=== PATIENT | male | born 1950 ===

== ENCOUNTER 2022-10-16 17:23 | Inpatient (IN) | payer MEDICARE, BC, SELFPAY ==
[2022-10-16] VITALS (40 sets, daily range): BP systolic 96–118; BP diastolic 64–91; PULSE 65–90; RESP 2–40; TEMP 31–36.6; O2SAT 90–99
--- NOTE | 2022-10-16 19:40 | RESPIRATORY ---
Pt states that he recently obtained home O2 in the last week through [employer]. He uses 2L O2 during the day, and a CPAP with no O2 bleed in at night - pt is unsure of home pressure settings. Pt placed on hospital CPAP unit at night with constant pressure 7 cmH2O, and FiO2 45%.
--- NOTE | 2022-10-16 20:44 | W.PM.HP.N ---
Date of service: 10/16/22 Time of Service: 20:44 Assessment and Plan Assessment and plan (1) Interstitial lung disease: Status: Acute Assessment and plan: He was admitted to the ICU where he has stabilized on high-flow NC He received IV steroids, ceftriaxone, azithromycin and vancomycin [facility]. Cont methylprednisonone 40mg IV BID Continue ceftiraxone and azithromycin. Lab for legionella and strep pneumoniae urine antigens, blastomyces Ag, Histo Ag, Mycoplasma pneumoniae PCR and Fungitell. Planned bronchoscopy on Tuesday. (2) Acute and chronic respiratory failure: Status: Acute Assessment and plan: He was placed on 2L supplemental O2 recently at a clinic visit. He recently increased it to 2.5. Now feeling better on high-flow NC Questionable pneumonia in background of ILD. (3) Acute congestive heart failure: Status: Acute Assessment and plan: No previous known h/o of CHF NTproBNP elevated now at 8572. Lasix 40mg IV given. Re-evaluate in AM for any further diuresis. Echocardiogram ordered. (4) Chronic kidney disease (CKD): Status: Chronic Assessment and plan: Creatinine at [facility] of 1.39; baseline not currently known. Monitor. (5) Atrial fibrillation: Assessment and plan: Apixiban on hold for bronchoscopy. Cont metoprolol. Ventricular rate control. Telemetry (6) Sleep apnea, obstructive: Status: Chronic Assessment and plan: CPAP (7) Hypertensive disorder: Status: Chronic Assessment and plan: His losartan and lasix were recently held d/t low BP; metoprolol was continued. Will give IV lasix 40mg now d/t elevated NTproBNP. (8) Hyperlipidemia: Status: Acute Assessment and plan: Cont atorvastatin. (9) Discharge planning issues: Status: Acute Assessment and plan: Pt is a full code. Disposition likely home at time of d/c. History of Present Illness History of Present Illness Chief Complaint: Cough and shortness of breath Narrative: This is a 72 yo male transferred from [facility]. He has a h/o Interstitial lung disease, afib, prostate CA, depression, HLD, HTN, PLMD, MAR, syringomyelia. He has been experiencing cough, chest congestion and shortness of breath for 1 month; s/p 2 courses of levofloxacin w/o improvement in his symptoms however his sputum has gone from thick yellow to thick clear. No gross hemoptysis; small smear of blood occassionally. He was initiated on 2L supplemental O2 at [facility] recently and at that time his lasix and losartan were held d/t low BP; metoprolol continued. CT chest recently showed worsening ILD with appearance of ground glass in areas. He was seen in the Pulmonary clinic on 10/15/[address] Tavares and a bronchoscopy was scheduled as an outpt for this coming Tuesday. He endorsed a recent syncopal episode that resulted in a sprained ankle; no head injury. At [facility] his WBC count was 10.5. Hgb 14.9. Na 134. K 4.6. Creainine 1.39. total bili 1.6. AST and ALT normal. NTproBNP elevated at 8572 Procalcitonine normal. At presentation to [facility] on his home 2.5L his O2 saturation was 73%. He was titrated up to 10L supplemental O2 and then changed to high-flow NC in the ICU where he stated he was feeling much better. This episode of illnes appeared to start as a URI at the time his tested positive for COVID. He was negative for COVID on day of this admission [facility]. At [facility] he was given IV solu-medrol, ceftriaxone, azithromycin and vancomycin. Review of Systems Constitutional Constitutional: Reports difficulty sleeping, Reports headache(s) and Reports lethargy Eyes Eyes: Reports itchy eyes ENT Ears, Nose, Mouth, and Throat: Reports headache(s) Cardiovascular Cardiovascular: Denies chest pain and Reports dyspnea on exertion Respiratory Respiratory: Reports as per HPI, Reports dyspnea on exertion and Reports other (orthopnea) Gastrointestinal Gastrointestinal: Denies abdominal pain, Denies change in stool character, Denies nausea and Denies vomiting Musculoskeletal Musculoskeletal: Reports other (R ankle discomfort and swelling;improving) Neurologic Neurologic: Reports headache(s) Allergic/Immunologic Allergic/Immunologic: Reports itchy eyes [facility] All Active Problems (Updated 10/16/22 @ 21:19 by Guy Spears MD) Acute congestive heart failure (Acute) Discharge planning issues (Acute) Acute and chronic respiratory failure (Acute) Backache (Acute) Carpal tunnel syndrome of right wrist (Acute) Cervical radiculopathy (Acute) Chronic kidney disease (CKD) (Chronic) Depressive disorder (Chronic) Eustachian tube disorder (Acute) Fibrosis, lung (Acute) Hyperlipidemia (Acute) Hypertensive disorder (Chronic) Interstitial lung disease (Acute) Sleep apnea, obstructive (Chronic) Periodic limb movement disorder (Acute) Right sided sciatica (Acute) Syringomyelia (Acute) Personal history of nicotine dependence (Acute) Medical History (Updated 10/16/22 @ 21:19 by Gyu Spears MD) Atrial fibrillation F/U with cards last appt 10/01/22. Scheduled for stress test and ECHO in 11/02/2022 Malignant neoplasm of prostate Surgical History (Updated 01/13/22 @ 14:04 by Suze Guerrero) H/O hemorrhoidectomy H/O hernia repair History of carpal tunnel surgery History of colonoscopy History of lung biopsy History of radical prostatectomy Hx of tonsillectomy Family History (Updated 01/13/22 @ 14:06 by Suze Guerrero) Brother Heart disease Father Heart disease Mother Pancreatic cancer Social History Smoking/Tobacco Use Status: Former Tobacco Use Quit Date: 03/21/12 Smoking risk assessment performed?: Yes Alcohol Intake: current Alcohol Intake frequency: holidays/special occasions only Drug use: Never Substance use type: does not use Housing: house Additional Social history: unable to assess [employer] Allergies and Home Medications Allergies Allergy/AdvReac Type Severity Reaction Status Date / Time No Known Allergies Allergy Verified 10/15/22 11:30 Home Medications Medication Instructions Recorded Confirmed Type apixaban 5 mg tablet (Eliquis) 5 mg PO BID 01/13/22 10/15/22 History atorvastatin 40 mg tablet 40 mg PO DAILY 01/13/22 10/15/22 History bioflavonoids 200 mg capsule See Rx Instructions PO DIRECTED 01/13/22 10/15/22 History gabapentin 100 mg capsule 100 mg PO TID 01/13/22 10/15/22 History metoprolol succinate 100 mg 100 mg PO DAILY 01/13/22 10/15/22 History tablet,extended release 24 hr multivitamin 1 tab PO DAILY 01/13/22 10/15/22 History pantoprazole 40 mg tablet,delayed 40 mg PO DAILY 01/13/22 10/15/22 History release sertraline 100 mg tablet 100 mg PO BID 01/13/22 10/15/22 History albuterol sulfate 90 mcg/actuation 2 puff inhalation Q6H PRN 05/04/22 10/15/22 Rx aerosol inhaler (Ventolin HFA) shortness of breath or wheezing #8.5 grams Exam Narrative Exam Narrative: Sitting up in bed. High-flow NC in place. Const General: cooperative and no acute distress Nutritional Appearance: overweight Orientation: alert and oriented x3 HENMT Head: normocephalic and atraumatic Ears: hearing grossly normal bilaterally Eyes General: appearance normal, both eyes and all related structures Sclera: sclerae normal Neck Neck: full ROM and no JVD Resp Effort & Inspection: normal respiratory effort Auscultation: rales, no rhonchi and no wheezes Cardio Rate: regular rate Rhythm: abnormal rhythm irregularly irregular Heart Sounds: S1 normal, S2 normal and no murmurs GI Inspection: normal to inspection Palpation: soft and nontender Skin General skin exam: no rashes or lesions noted Neuro General: no focal motor deficits Cranial Nerves: facial strength normal Speech: speech normal Extrem General: no pedal edema and no calf tenderness Psych Appearance: grossly normal Mental Status: mental status grossly normal Speech and Movement: speech and movement normal Mood: congruent mood Affect: normal affect Results Last Vital Signs Pulse 77 10/16/22 19:25 Resp 28 H 10/16/22 19:25 Pulse Ox 98 10/16/22 19:25 Time Spent Time spent with Patient: 40-54 minutes Time was spent: preparing to see the patient(eg.review tests), obtaining and/or reviewing separately otained hiistory, ordering medications,tests, procedures, referring, communicating with other health care management associate, indepentently interpreting results, counseling the patient and care coordination
[2022-10-16] MEDS: Albuterol/Ipratropium 3 ML UPD VIAL UPD ×2 (21:08→23:54)
[2022-10-16] MEDS: Furosemide 40 MG/4 ML VIAL IVP (21:09)
[2022-10-16] MEDS: methylPREDNISolone SUCC 40 MG VIAL IVP (21:09)
[2022-10-16] MEDS: Normal Saline Flush 10 ML SYR IVP ×2 (21:16→23:55)
[2022-10-16 22:00] LABS: Source Nasal/Nares
[2022-10-16 22:34] LABS: COVID-19 PCR Negative (Negative)
[2022-10-16] MEDS: Sertraline 50 MG TAB 100 MG PO (22:42)
[2022-10-17] VITALS (83 sets, daily range): BP systolic 79–119; BP diastolic 55–83; PULSE 64–116; RESP 1–45; TEMP 31–36.6; O2SAT 89–100
[2022-10-17] MEDS: Zolpidem 5 MG TAB PO ×2 (01:43→20:54)
[2022-10-17] MEDS: Albuterol/Ipratropium 3 ML UPD VIAL UPD ×3 (06:21→18:01)
[2022-10-17 06:35] LABS: Abs Immature Grans 0.06 10^3/uL (0.0-0.06); Absolute Lymphocyte Count 0.45 10^3/uL (1.2-3.4); Basophils % 0.2; HCT 40.4 % (40.0-50.0); HGB 13.5 g/dL (13.5-17.5); Immature Grans % 0.5; Lymphocytes % 3.4; MCH 31.5 pg (27.0-33.0); MCHC 33.4 % (32.0-36.0); MCV 94 fL (80-95); MPV 10.3 fL (8.0-11.0); Monocytes % 7.6; Neutrophils % 88.3; Platelet Count 146 10^3/uL (130-400); RBC 4.28 10^6/uL (4.36-5.78); RDW 12.9 % (11.8-14.1); RDW-SD 44.3 fL; WBC 13.17 10^3/uL (4.4-10.8)
[2022-10-17 06:39] LABS: Absolute Basophil Count 0.03 10^3/uL (0.0-0.2); Absolute Neutrophil Count 11.63 10^3/uL (1.2-6.7)
[2022-10-17 06:56] LABS: INR 1.1 (0.9-1.1); Prothrombin Time 10.9 sec (9.3-11.0)
[2022-10-17 07:06] LABS: ALT 21 U/L (16-63); AST 29 U/L (15-37); Albumin 3.1 g/dL (3.4-5.0); Alkaline Phosphatase 72 U/L (46-116); Anion Gap 9.2 mmol/L (3-11); BUN 25 mg/dL (7-18); Bilirubin, Total 1.1 mg/dL (0.2-1.0); CO2 24.8 mmol/L (21.0-32.0); CREATININE 1.3 mg/dL (0.70-1.30); Calcium 8.6 mg/dL (8.5-10.1); Chloride 102 mmol/L (98-107); Ferritin 275 ng/mL (26-388); Glucose 153 mg/dL (74-106); Magnesium 1.9 mg/dL (1.8-2.4); Potassium 3.6 mmol/L (3.5-5.1); Sodium 136 mmol/L (136-145); TSH (W/Ref FT4) 0.53 uIU/mL (0.36-3.74); Total Protein 7.5 g/dL (6.4-8.2)
[2022-10-17 07:14] LABS: Vitamin D 25 Total 54.4 ng/mL (30-100)
[2022-10-17 07:16] LABS: Bilirubin, Direct 0.3 mg/dL (0.0-0.2); C-Reactive Protein 13.42 mg/dL (0.0-0.3)
[2022-10-17 07:17] LABS: D-Dimer 1170 ng/mlFEU (<500)
[2022-10-17 07:47] LABS: Procalcitonin < 0.1 ng/mL
[2022-10-17] MEDS: Gabapentin 100 MG CAP PO ×3 (08:53→20:54)
[2022-10-17] MEDS: Pantoprazole 40 MG TABCR PO (08:53)
[2022-10-17] MEDS: Metoprolol CR 100 MG TABCR PO (08:53)
[2022-10-17] MEDS: AZITHROMYCIN 500 MG in Normal Saline 250 ML 250 MG IVPB (08:53)
[2022-10-17] MEDS: Sertraline 50 MG TAB 100 MG PO ×2 (08:53→20:55)
--- NOTE | 2022-10-17 09:06 | PDOC.CMIN ---
Date of service: 10/17/22 Time of Service: 09:07 Care Management Initial Assmt Initial Assessment REASON FOR HOSPITALIZATION:: interstitial lung disease PREVIOUS FUNCTIONAL STATUS/SOCIAL/FAMILY SUPPORTS:: Prasad lives in a single family home in [place], [place] with his Darlene. They have a son who lives in [place], [place] with his family and a daughter in [place]. They are a close family and the children come to visit often. Prasad is no longer working. 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 Until the last few weeks, he was very active and independent. CURRENT FUNCTIONAL STATUS:: Prasad was sitting up in bed visiting with his when CM met with him. He was pleasant and cooperative and engaged easily in conversation. Prasad stated that until a few weeks ago, he was very active and able to mow the lawn, work and do normal activities. He developed some sort of a respiratory infection (negative for Covid X3) and since then has experienced a steady decline. He was scheduled to have an outpatient bronchoscopy with Dr. Tavares tomorrow, but ended up in the ED at [facility] who transferred him to [facility]. His WBC and CRP are elevated and he remains tachypneic with respiratory rates in the 30s at times. Prasad is on high-flow nasal oxygen with oxygen saturation levels in the high 90s. He will be seen by Dr. Tavares in consultation tomorrow. ADVANCE DIRECTIVES:: None on file at [facility], however states he has advanced directives and Surekha is the healthcare agent. Has patient been provided with info about the portal/API?: No Did the patient sign up for the portal?: No CODE STATUS:: Full Code INSURANCE COVERAGE / FINANCIAL ISSUES:: Medicare Blue Cross/Blue [employer] CURRENT HOME/COMMUNITY SERVICES/EQUIPMENT:: none PRIMARY CARE PHYSICIAN:: Francisco Javier Morris POTENTIAL DISCHARGE NEEDS:: Follow up with Pulmonology, PCP and plan of care PATIENT/FAMILY EDUCATION NEEDS:: review of discharge instructions, limitations, activity, follow up plan, discuss [employer] TRANSPORTATION:: via private vehicle with family PLAN:: Anticipate Prasad will discharge home with no new services when medically cleared by provider. He will follow up with his PCP, Irrigation Teacher and plan of care and transport with family. CM will support Prasad and assess for discharge concerns. PFSH All Active Problems (Updated 10/17/22 @ 09:18 by Jacqueline Mckeon MD) Discharge planning issues (Acute) Acute and chronic respiratory failure (Acute) Backache (Acute) Carpal tunnel syndrome of right wrist (Acute) Cervical radiculopathy (Acute) Chronic kidney disease (CKD) (Chronic) Depressive disorder (Chronic) Eustachian tube disorder (Acute) Fibrosis, lung (Acute) Hyperlipidemia (Acute) Hypertensive disorder (Chronic) Interstitial lung disease (Acute) Sleep apnea, obstructive (Chronic) Periodic limb movement disorder (Acute) Right sided sciatica (Acute) Syringomyelia (Acute) Personal history of nicotine dependence (Acute) Medical History (Updated 10/17/22 @ 09:18 by Jacqueline Mckeon MD) Atrial fibrillation F/U with cards last appt 10/01/22. Scheduled for stress test and ECHO in 11/02/2022 Malignant neoplasm of prostate Surgical History (Updated 01/13/22 @ 14:04 by Suze Guerrero) H/O hemorrhoidectomy H/O hernia repair History of carpal tunnel surgery History of colonoscopy History of lung biopsy History of radical prostatectomy Hx of tonsillectomy Family History (Updated 01/13/22 @ 14:06 by Suze Guerrero) Brother Heart disease Father Heart disease Mother Pancreatic cancer Social History Smoking/Tobacco Use Status: Former Tobacco Use Quit Date: 03/21/12 Smoking risk assessment performed?: Yes Alcohol Intake: current Alcohol Intake frequency: holidays/special occasions only Drug use: Never Substance use type: does not use Housing: house Additional Social history: unable to assess [facility]
--- NOTE | 2022-10-17 09:12 | W.PM.PROGNOT ---
Date of Service Date of service: 10/17/22 Time of Service: 09:13 Assessment and Plan Assessment and plan (1) Acute and chronic respiratory failure: Status: Acute Assessment and plan: Due to ILD flare vs an acute infectious process vs pulmonary edema. Continue steroids, empiric abx, diuretics, nebs. Await testing for blasto, histo, fungitell, urine strep and legionella antigens, mycoplasma sputum. Wean O2 as tolerated. Pulmonology is consulted for a possible bronchoscopy tomorrow - NPO after midnight. Holding anticoagulation. (2) Interstitial lung disease: Status: Acute Assessment and plan: As above (3) Acute congestive heart failure: Status: Suspected Assessment and plan: Await echocardiogram. Continue diuresis. (4) Chronic kidney disease (CKD): Status: Chronic Assessment and plan: Monitor Cr w/ diuresis. (5) Atrial fibrillation: Assessment and plan: Continue metoprolo. Hold Apixiban in anticipation of bronchoscopy. Cardiac monitoring. (6) Sleep apnea, obstructive: Status: Chronic Assessment and plan: Continue CPAP (we do not know home settings; titrating to comfort and adequate O2 sats here). (7) Hypertensive disorder: Status: Chronic Assessment and plan: Continue metoprolol. Monitor BP while diuresing. (8) Hyperlipidemia: Status: Acute Assessment and plan: Continue atorvastatin. (9) Discharge planning issues: Status: Acute Assessment and plan: Full code. Keep in the ICU. Subjective Subjective Interval history since last seen: Mr Mandujano denies dizziness, CP, SOB, n/v. He is not feeling any different. He is not coughing. He has been on humidified heated high flow O2 overnight at 45 L 65% FiO2 saturating in high 90s alternating with CPAP @ 7 and FiO2 of 45%. Exam Narrative Exam Narrative: General: Pleasant male who is sitting up in a chair on a humidified heated high flow NC, no dyspnea/tachypnea/cyanosis, appears comfortable HEENT: EOMI, MMM Heart: irregularly irregular rhythm, no m/r/g Lungs: faint crackles at B bases Abdomen: soft, nontender, nondistended Extremities: no edema BLEs. Objective Last Vital Signs Temp 36.6 C 10/17/22 07:28 Pulse 93 H 10/17/22 07:00 Resp 31 H 10/17/22 07:00 BP 110/78 10/17/22 07:00 Pulse Ox 97 10/17/22 07:00 Laboratory Results - last 24 hr 10/16/22 10/17/22 10/17/22 21:50 05:58 05:58 WBC RBC Hgb Hct MCV MCH MCHC RDW Plt Count MPV Immature Gran % Neutrophils % Lymphocytes % Monocytes % Eosinophils % Basophils % Nucleated RBC % Absolute Neutrophils Absolute Lymphocytes Absolute Monocytes Absolute Eosinophils Absolute Basophils PT INR D-Dimer Sodium 136 Potassium 3.6 Chloride 102 Carbon Dioxide 24.8 Anion Gap 9.2 BUN 25 H Creatinine 1.3 Est GFR (CKD-EPI 2020) 59.10 Glucose 153 H Calcium 8.6 Magnesium 1.9 Ferritin 275 Total Bilirubin 1.1 H Conjugated Bilirubin 0.3 H AST 29 ALT 21 Alkaline Phosphatase 72 C-Reactive Protein 13.42 H Total Protein 7.5 Albumin 3.1 L 25-OH Vitamin D Total 54.4 Procalcitonin TSH 0.53 COVID-19 Source Nasal/Nares SARS-CoV-2 (PCR) Negative 10/17/22 10/17/22 10/17/22 05:58 05:58 05:58 WBC 13.17 H RBC 4.28 L Hgb 13.5 Hct 40.4 MCV 94 MCH 31.5 MCHC 33.4 RDW 12.9 Plt Count 146 MPV 10.3 Immature Gran % 0.5 Neutrophils % 88.3 Lymphocytes % 3.4 Monocytes % 7.6 Eosinophils % 0.0 Basophils % 0.2 Nucleated RBC % 0.0 Absolute Neutrophils 11.63 H Absolute Lymphocytes 0.45 L Absolute Monocytes 1.00 H Absolute Eosinophils 0.00 Absolute Basophils 0.03 PT 10.9 INR 1.1 D-Dimer 1170 H Sodium Potassium Chloride Carbon Dioxide Anion Gap BUN Creatinine Est GFR (CKD-EPI 2020) Glucose Calcium Magnesium Ferritin Total Bilirubin Conjugated Bilirubin AST ALT Alkaline Phosphatase C-Reactive Protein Total Protein Albumin 25-OH Vitamin D Total Procalcitonin < 0.1 TSH COVID-19 Source SARS-CoV-2 (PCR) Multi-Disciplinary Checklist Lines/Tubes CENTRAL LINE: no ARTERIAL LINE: no ADKINS: no ENDOTRACHEAL TUBE: no ICU Maintenance GLUCOSE 140-180mg/dL: yes NUTRITION AT GOAL: yes PRESSURE ULCER: no RESTRAINTS: no ANTIBIOTICS(if yes, consider Stewardship): Yes Social Issues FAMILY UPDATED: no, Reason/Intervention: Patient is able to update family PT/OT: no, Reason/Intervention: Independent in the room GOALS/DISPOSITION/BUSINESS SERVICES ADMINISTRATOR: yes CODE STATUS: Full Prophylaxis DVT PROPHYLAXIS: yes GI PROPHYLAXIS: yes, Indication: on steroids Time Spent with Patient Time Spent with Patient: 25-34 minutes Time was spent: preparing to see the patient(eg.review tests), obtaining and/or reviewing separately otained hiistory, ordering medications,tests, procedures, referring, communicating with other health career development counselor, indepentently interpreting results, counseling the patient and care coordination
[2022-10-17] MEDS: Normal Saline Flush 10 ML SYR IVP ×4 (09:33→20:54)
[2022-10-17] MEDS: Water,Injection,Bacteriostatic 30 ML VIAL IJ (10:13)
[2022-10-17] MEDS: Furosemide 20 MG/2 ML VIAL IVP ×2 (10:14→16:39)
[2022-10-17] MEDS: methylPREDNISolone SUCC 40 MG VIAL IVP ×2 (10:14→20:54)
[2022-10-17] MEDS: cefTRIAXone 2 GM/50 ML BAG IVPB (10:28)
--- NOTE | 2022-10-17 13:30 | PHACLINREV_ITS ---
Pharmacy Admission Review Admission Clinical Review Admission Pharmacy Review: (Updated 10/17/22 @ 09:18 by Jacqueline Mckeon MD) Discharge planning issues (Acute) Acute and chronic respiratory failure (Acute) Hyperlipidemia (Acute) Interstitial lung disease (Acute) No Known Allergies Allergy (Verified 10/15/22 11:30) Resuscitation Status Full Code Height 5 ft 7 in Weight 88.4 kg Comments Comments/Follow Ups: Watch BP, SCr, labs, for serology results and for med larry ges (possible renal dose adjustments, antibiotic de-escalation, resumption of apixaban following possible bronchoscopy). Pharmacy Admission Review Renal Dosing Renal Dosing: BUN 25 mg/dL (7-18) H 10/17/22 05:58 Creatinine 1.3 mg/dL (0.70-1.30) 10/17/22 05:58 Medications needing adjustments: Reviewed (Crcl ~56.1 mL/min current meds okay) Anticoagulation Anticoagulation: Hgb 13.5 g/dL (13.5-17.5) 10/17/22 05:58 Hct 40.4 % (40.0-50.0) 10/17/22 05:58 Plt Count 146 10^3/uL (130-400) 10/17/22 05:58 INR 1.1 (0.9-1.1) 10/17/22 05:58 Creatinine 1.3 mg/dL (0.70-1.30) 10/17/22 05:58 DVT Prophylaxis: Reviewed (SCDs ordered) Therapeutic Anticoagulation: Reviewed (apixaban on hold in anticipation of bronchoscopy Tuesday per progress note) Opiate Usage Evaluate Pain Scale/Pains Meds: N/A Relevant Labs Relevant Labs: Sodium 136 mmol/L (136-145) 10/17/22 05:58 Potassium 3.6 mmol/L (3.5-5.1) 10/17/22 05:58 Chloride 102 mmol/L (98-107) 10/17/22 05:58 Magnesium 1.9 mg/dL (1.8-2.4) 10/17/22 05:58 C-Reactive Protein 13.42 mg/dL (0.0-0.3) H 10/17/22 05:58 Electrolytes, C-Reactive P, ESR: Reviewed DM Control DM Control: Glucose 153 mg/dL (74-106) H 10/17/22 05:58 DM Control: Reviewed (No DM noted it pt's medical history, no A1c on file) Cardiac Review Cardiac Review: Blood Pressure [Right Arm] 101/73 Blood Pressure 98/66 Blood Pressure 110/83 Blood Pressure 91/66 Blood Pressure 95/60 Blood Pressure 110/67 BP, HR, EF%: Reviewed (BP has been low to normal most of admission so far.) QTc Review QTc: N/A (no EKG done here) IV to PO Switch IV Medications: Reviewed Home Meds Home Med List reviewed: Reviewed Relevent Home Meds Not ordered & why?: apixaban (on hold), multivitamin Current Meds Current Medication Order Review: Reviewed Pharmacy Antibiotic Review Relevant Labs: Relevant Labs 10/17/22 10/17/22 05:58 05:58 C-Reactive Protein 13.42 H Procalcitonin < 0.1 Pharmacy Antibiotic Activity: Reviewed, no change Comments: Empiric ceftriaxone and azithromycin continue due to acute on chronic respiratory failure (possible infectious source vs. other possible sources per progress note). Comments Comments/Follow Ups: Watch BP, SCr, labs, for serology results and for med changes (possible renal dose adjustments, antibiotic de-escalation, resumption of apixaban following possible bronchoscopy).
[2022-10-17 17:19] LABS: Legionella Ag Detection Urine Negative (Negative)
[2022-10-17] MEDS: Calcium Carbonate *TUMS* 500 MG CHEW 1000 MG PO (20:17)
[2022-10-17] MEDS: Atorvastatin 40 MG TAB PO (20:54)
[2022-10-18] VITALS (97 sets, daily range): BP systolic 88–130; BP diastolic 56–84; PULSE 58–140; RESP 2–41; TEMP 36.1–36.8; O2SAT 87–100
--- NOTE | 2022-10-18 | DI.RAD_ITS ---
Exam(s) XR PORTABLE CHEST AP EXAM: XR PORTABLE CHEST AP CLINICAL HISTORY: respiratory failure. TECHNIQUE: 2D digital imaging was performed. COMPARISON: Prior outside CT CT CHEST HIGH RES WITHOUT CONT from 10/12/2022 FINDINGS: Single AP portable view. Mild cardiomegaly. Extensive bilateral interstitial disease again noted as seen on recent outside 10/13/2019 CT scan. No new confluent infiltrates exhibiting air bronchograms and there are no pleural effusions. IMPRESSION: Extensive bilateral interstitial disease, as evident on the recent outside CT scan of 10/12/2022. DATA REPOSITORY: RADIATION DOSE DELIVERED:
[2022-10-18] MEDS: Albuterol/Ipratropium 3 ML UPD VIAL UPD ×5 (00:27→21:38)
--- NOTE | 2022-10-18 01:19 | NUR.NOTE ---
0100-pt had been awoken for his scheduled updraft. After updraft, stood to void and became quite labored with RR of 40 and MV on cpap machine of 43. Sao2 decreased to 70's and heart rate increased to 135. O2 increased to 5-% on the cpap till pt started to breath calmer and MV came down and then Fio2 decreased.
[2022-10-18 06:51] LABS: Abs Immature Grans 0.07 10^3/uL (0.0-0.06); Absolute Basophil Count 0.01 10^3/uL (0.0-0.2); Absolute Lymphocyte Count 0.53 10^3/uL (1.2-3.4); Absolute Monocyte Count 1.07 10^3/uL (0.1-0.8); Absolute Neutrophil Count 12.93 10^3/uL (1.2-6.7); Basophils % 0.1; HCT 42.4 % (40.0-50.0); HGB 14.4 g/dL (13.5-17.5); Immature Grans % 0.5; Lymphocytes % 3.6; MCV 94 fL (80-95); MPV 10.5 fL (8.0-11.0); Monocytes % 7.3; Neutrophils % 88.5; Platelet Count 164 10^3/uL (130-400); RDW 12.6 % (11.8-14.1); RDW-SD 43.7 fL; WBC 14.61 10^3/uL (4.4-10.8)
--- NOTE | 2022-10-18 06:57 | W.PULMCC ---
General Date of Service Date of service: 10/18/22 Time of Service: 06:57 Assessment and Plan Assessment and plan (1) Acute congestive heart failure: Status: Suspected (2) Acute and chronic respiratory failure: Status: Acute (3) Interstitial lung disease: Status: Acute (4) Sleep apnea, obstructive: Status: Chronic (5) Leukocytosis: Status: Acute Assessment and plan: This is a 72 yo whom I suspect of having an ILD flare, originally planned for bronchoscopy today to rule out infection prior to starting a steroid regimen for this. His Lasix was stopped due to hypotension at [facility] and this resulted in a volume overload state and subsequent worsening hypoxic respiratory failure. He has been diureses and his oxygen needs have significantly improved. On POCUS his RV was dilated, which may represent volume overload or pulmonary hypertension. I was unable to visualize his IVC. I do think he is still having an underlying ILD flare that does need attention, however his acute requirements and his acute CHF exacerbation make a bronchoscopy much higher risk for him. He does have fungal infection marking pending, but with his acute decompensation he has been started on high dose steroid therapy in addition to antibiotics. (6) Atrial fibrillation: Recommendations Pulmonary: Hypoxic respiratory failure - supplemental O2 for sats >90% - VibraPEP and IS - diuresis to euvolemia - out of bed to chair ILD exacerbation - 40mg methylpred bid for 1 more day - tomorrow recommend starting 40mg prednisone daily for 2 weeks, then: - 30mg for 2 weeks, 20mg for 2 week, 10mg for 1 week, 5mg for 1 week - start Bactrim ppx while on 20mg prednisone or greater - no bronchoscopy - fu fungitell and urine antigens - continue ceftriaxone and azithro - 5 day course MAR - CPAP at night Cardiac: CHF exacerbation - diuresis to euvolemua - may need to back off tomorrow given Cr increase - formal echo pending A. fib - restarted Eliquis Renal: CKD - continue to monitor I&O: Intake & Output 10/15/22 10/16/22 10/17/22 10/18/22 23:59 23:59 23:59 23:59 Intake Total 900 / 900 2688 / 2688 Output Total 1550 / 2000 3700 / 3700 550 / 550 Balance -650 / -1100 -1012 / -1012 -550 / -550 Weight 88.4 kg Daily Fluid Goal:: slightly negative GI Nutrition: OK for diet Date of Last Bowel Movement: 10/16/22 Hematologic: Leukocytosis - continue to monitor Neurologic: No acute concerns Endocrine: No acute concerns Lines: PIV Prophylaxis: Eliquis Protonix Code Status: Resuscitation Status Full Code Subjective Critical and life-threatening events over the past 24 hours: This is a 72 yo man admitted to the ICU for hypoxic respiratory failure. Please see the H&P for more details. In short: I saw him acutely on October 15 in the setting of [facility] ED visits and a new oxygen need. He has underlying ILD and I was concerned about ILD flare. We were planned for bronchoscopy today as an outpatient to do just this. Of note at a recent ED visit for hypotension his Lasix was stopped. Over the weekend, he got worse and was very hypoxic on his new home O2. He was transferred to [facility] ICU for hypoxia. His blood work, exam and imaging was concerning for volume overload so he was diuresed with significant improvement in his hypoxia over the weekend. Over the weekend I communicated with Dr. Mckeon and recommended methylpred 40 bid and antibiotic coverage in addition to blood and urine testing for bacteria and fungal infections. Today he is doing much better (3L negative). His dyspnea is greatly improved. I was able to put him on nasal cannula today and he maintained his sats. In consultation with anesthesia, based on his clinic status, it was decided to cancel the bronchoscopy. Exam Narrative Exam Narrative: Gen: NAD, normal respiratory effort, well-nourished HENT: PERRL Chest: No respiratory distress, normal appearance of chest, bilateral crackles Heart: regular rate and rhythym, no murmurs, rubs or gallops Abdomen: Non-distended, soft, non tender Extremities: No clubbing, edema, cyanosis, rashes Neuro: AAOx3 , non focal Psych: cooperative, appropriate mental affect Most Recent VS/Results Last Vital Signs Temp 36.6 C 10/18/22 00:15 Pulse 81 10/18/22 06:38 Resp 20 10/18/22 06:38 BP 88/56 L 10/18/22 04:00 Pulse Ox 96 10/18/22 06:38 Laboratory Results - last 24 hr 10/17/22 10/17/22 10/17/22 05:58 05:58 05:58 PT INR D-Dimer Sodium 136 Potassium 3.6 Chloride 102 Carbon Dioxide 24.8 Anion Gap 9.2 BUN 25 H Creatinine 1.3 Est GFR (CKD-EPI 2020) 59.10 Glucose 153 H Calcium 8.6 Magnesium 1.9 Ferritin 275 Total Bilirubin 1.1 H Conjugated Bilirubin 0.3 H AST 29 ALT 21 Alkaline Phosphatase 72 C-Reactive Protein 13.42 H Total Protein 7.5 Albumin 3.1 L 25-OH Vitamin D Total 54.4 Procalcitonin < 0.1 TSH 0.53 10/17/22 05:58 PT 10.9 INR 1.1 D-Dimer 1170 H Sodium Potassium Chloride Carbon Dioxide Anion Gap BUN Creatinine Est GFR (CKD-EPI 2020) Glucose Calcium Magnesium Ferritin Total Bilirubin Conjugated Bilirubin AST ALT Alkaline Phosphatase C-Reactive Protein Total Protein Albumin 25-OH Vitamin D Total Procalcitonin TSH Review of Systems All systems reviewed & are unremarkable except as noted in HPI and below Time spent with patient Time spent in Critical Care: 45 Time spent in Critical care included: Chart review, Documenting critically ill care, Time at immediate bedside and Discussing critically ill care with other medical staff Pocus Exam Limited Cardiac Exam DATE OF EXAM: 10/18/22 TIME OF EXAM: 07:30 PROVIDER THAT PERFORMED THE STUDY: Echo Tavares IS THIS A REPEAT EXAM DURING THIS ENCOUNTER: no REASON FOR EXAM: Hypoxia VISUALIZED STRUCTURES: four chambers, aortic valve, mitral valve and Interventricular septum; unable to visualize the IVC VIEW OBTAINED: Apical 4-Chamber, Parasternal long-axis, Parasternal short-axis and Subxiphoid PERTINENT FINDINGS/IMPRESSION: RV dilation Exam complete
--- NOTE | 2022-10-18 07:00 | DI.US_ITS ---
APPROVED REPORT EXAM: Comprehensive 2D, Doppler, and color-flow Echocardiogram Patient Location: In-Patient Room/Bed: [address] [employer] Agent: Billy Balderrama RDCS Indications: SOB, elevated NTProBNP, Afib, HTN, CHF Other Information Study Quality: Adequate Conclusion Normal left ventricular wall thickness and chamber size. Ejection fraction is 55 to 60%. Wall motio n is normal Normal right ventricular size and systolic function Both atria are mildly dilated Trileaflet aortic valve without stenosis or regurgitation Normal mitral valve with moderate regurgitation Normal tricuspid valve with moderate regurgitation. Estimated right ventricular systolic pressure is 46 mmHg Mildly dilated ascending aorta 0.7 cm Wall motion Left Ventricle The left ventricle is normal size. The left ventricular systolic function is normal. The left ventric ular ejection fraction is within the normal range. There is normal left ventricular wall thickness. T here is normal LV segmental wall motion. There is no ventricular septal defect visualized. LVEF is 56 %. Right Ventricle The right ventricle is normal size. The right ventricular systolic function is normal. The RVSP is 46 .3 mmHg. Atria The left atrium size is mildly dilated The right atrium size is mildly dilated The interatrial septum is intact with no evidence for an atrial septal defect. Aortic Valve The aortic valve is normal in structure. Aortic valve is trileaflet. There is no aortic valvular sten osis. No aortic regurgitation is present. Mitral Valve The mitral valve is normal in structure. No evidence of mitral valve stenosis. Moderate mitral regurg itation. Tricuspid Valve The tricuspid valve is normal in structure. There is no tricuspid valve stenosis. Moderate tricuspid regurgitation. Pulmonic Valve The pulmonary valve is normal in structure. There is no pulmonic valvular stenosis. Mild pulmonic reg urgitation. Great Vessels Aortic root is mildly dilated. The ascending aorta is mildly dilated. Aortic arch is normal in calib er. IVC is normal in size and collapses >50% with inspiration. Pericardium There is no pericardial effusion. 2D Dimensions IVSD d PLAX 0.50 cm M: 0.6-1.2 LV Vol A2C d MOD 123.2 mL LVPW d PLAX 0.53 cm M: 0.6 - 1.2 LV Vol A4C d MOD 116.0 mL LVID d PLAX 4.70 cm M: 4.2 - 5.8 LA Area A4C s MOD 28.51 cm2 LVDs 3.45 cm M: 2.5 - 4.0 LV EF A4C MOD 56.1 % Ao Root d 3.94 cm M: 3.1 - 3.7 LV EF A2C MOD 57.0 % Ao Asc Diam d 3.70 cm M: 2.6 - 3.4 LV EF Biplane MOD 56.6 % LV EF Teichholz 50.6 % SV 69.28 mL LVEF (Gordon's) 56.61 % M: 52 - 72 LV Volume 122.39 mL M: 62 - 150 LV Volume Index 61.19 mL/m2 M: 34 - 74 LV Vol Biplane MOD 122.4 mL FS 25.70 % M-Mode TAPSE 1.82 cm (M/F) >1.7 LV Diastology MV E' medial 0.207 (>0.07 m/s) MV E Vmax 0.90 (0.4-1.3 m/s) LV E/e MED 4.30 (<14) MV E' lateral 0.226 (>0.1 m/s) LV E/e LAT 3.95 (<14) MV E/E' medial 4.35 MV E/E' lateral 3.97 Aortic Valve LVOT Area 4.05 cm2 AoV Area Vmax 4.02 cm2 LVOT Vmax 0.71 m/s ROCK Mean Samuel. 3.84 cm2 LVOT Mean Samuel. 0.48 m/s LVOT Peak Grad 2.0 mmHg LVOT Mean Grad 1.1 mmHg LVOT VTI 0.125 m LVOT Diam s 2.25 cm AoV Vmax 0.71 m/s Velocity Ratio 1.00 AoV Mean Samuel. 0.51 m/s AoV Peak Grad 2.0 mmHg LVOT SV 50.54 mL AoV Mean Grad 1.2 mmHg AoV VTI 0.126 m AoV Area VTI 4.02 cm2 Mitral Valve MV DT 161 (160-240 msec) MR Vmax 5.18 m/s MV PHT 47 msec MR VTI 1.598 m MV Area PHT 4.73 cm2 MR Peak Grad 107.4 mmHg MV VTI 0.174 m MR Mean Grad 72.1 mmHg MV VTI Annulus 0.188 m MR PISA Radius 0.35 cm MV Area VTI 3.16 (4.0-6.0 cm2) MR EROA 0.05 cm2 MR Aliasing Velocity 0.35 m/s MR PISA 0.75 cm2 Pulmonary Valve PV Vmax 0.76 (0.5-1.5 m/s) RVOT Peak Gr. 0.96 mmHg PV Peak Grad 2.3 mmHg RVOT Mean Gr. 0.45 mmHg PV Mean Grad 1.1 mmHg RVOT VTI 0.053 m PV VTI 0.139 m RVOT Vmax 0.49 m/s Tricuspid Valve TR Peak Grad 43.3 mmHg TR Vmax 3.29 m/s RA Pressure 3.00 mmHg RVSP (TR) 46.3 mmHg
[2022-10-18 08:20] LABS: Anion Gap 11.2 mmol/L (3-11); BUN 41 mg/dL (7-18); CO2 24.8 mmol/L (21.0-32.0); CREATININE 1.4 mg/dL (0.70-1.30); Chloride 101 mmol/L (98-107); Estimated GFR 54.07 (mL/min/1.73m2); Glucose 154 mg/dL (74-106); Magnesium 2.1 mg/dL (1.8-2.4); Potassium 4.1 mmol/L (3.5-5.1); Sodium 137 mmol/L (136-145)
[2022-10-18 08:32] LABS: C-Reactive Protein 6.79 mg/dL (0.0-0.3)
[2022-10-18] MEDS: Water,Injection,Sterile 10 ML VIAL ×2 (08:32→20:12)
[2022-10-18] MEDS: Apixaban 5 MG TAB PO ×2 (08:42→19:25)
[2022-10-18] MEDS: Metoprolol CR 100 MG TABCR PO ×2 (08:42→19:27)
[2022-10-18] MEDS: Furosemide 20 MG/2 ML VIAL IVP ×2 (08:43→16:35)
[2022-10-18] MEDS: Gabapentin 100 MG CAP PO ×3 (08:43→19:25)
[2022-10-18] MEDS: Pantoprazole 40 MG TABCR PO (08:43)
[2022-10-18] MEDS: Sertraline 50 MG TAB 100 MG PO ×2 (08:43→19:27)
[2022-10-18] MEDS: methylPREDNISolone SUCC 40 MG VIAL IVP ×2 (08:43→19:26)
[2022-10-18] MEDS: AZITHROMYCIN 500 MG in Normal Saline 250 ML 250 MG IVPB (08:44)
[2022-10-18] MEDS: Normal Saline Flush 10 ML SYR IVP (08:44)
--- NOTE | 2022-10-18 08:44 | PDOC.CMPRO ---
Date of service: 10/18/22 Time of Service: 08:44 Care Management Progress Note Progress Note Text Progress Note Text: S/O: Prasad was sitting up in a chair when CM met with him. His was in the room, visiting. They were both pleasant and engaged in conversation. Per report, Prasad is on 2LO2 currently, but required 8LO2 with ambulation when he walked with PT. He stated that at baseline he uses 2LO2, although this is a new O2 requirement. He expressed concern about his O2 concentrator, as he does not have any way to transport easily with O2. CM discussed this with RT, and RT stated that the Pulmonology office is working with [employer] to provide something more portable for him to use. Prasad reported that he had an echo today, and he is awaiting results. He asked that Dr. Mckeon be in contact with his retail special event associate, Dr. Shepherd, who works both at [employer] [facility] and [facility]; CM relayed this information to Dr. Mckeon. CM will continue to follow. A: Prasad is a 72 year old male admitted to [facility] on 10/16/22 for acute on chronic hypoxic respiratory failure. P: Anticipate Prasad will discharge home with no new services when medically cleared by provider. He will follow up with his PCP, Assembly [employer] and plan of care and transport with family. CM will support Prasad and assess for discharge concerns.
--- NOTE | 2022-10-18 09:11 | W.PM.PROGNOT ---
Date of Service Date of service: 10/18/22 Time of Service: 09:11 Assessment and Plan Assessment and plan (1) Acute and chronic respiratory failure: Status: Acute Assessment and plan: Due to ILD flare vs an acute infectious process vs pulmonary edema. I favor pulmonary edema due to rapid improvement in oxygenation. Continue steroids, empiric abx, diuretics, nebs. Await testing for blasto, histo, fungitell, urine strep and legionella antigens, mycoplasma sputum. CXR is being repeated today. Wean O2 as tolerated. No bronchoscopy today - felt not to be needed due to rapid improvement. (2) Interstitial lung disease: Status: Acute Assessment and plan: As above (3) Acute congestive heart failure: Status: Suspected Assessment and plan: Await echocardiogram result. Continue diuresis. (4) Syncope: Status: Acute Assessment and plan: At home, 1 week ago. Await echo, monitor on tele. Sounds like hypoxia was the trigger for tachycardia at that time. (5) Chronic kidney disease (CKD): Status: Chronic Assessment and plan: Monitor Cr w/ diuresis. (6) Atrial fibrillation: Assessment and plan: Continue metoprolol - adjust dose to home dose. Apixaban resumed. Continue cardiac monitoring. (7) Sleep apnea, obstructive: Status: Chronic Assessment and plan: Continue CPAP (we do not know home settings; titrating to comfort and adequate O2 sats here). (8) Hypertensive disorder: Status: Chronic Assessment and plan: Continue metoprolol (dose adjusted to home dosing). Monitor BP while diuresing. (9) Hyperlipidemia: Status: Acute Assessment and plan: Continue atorvastatin. (10) Discharge planning issues: Status: Acute Assessment and plan: Full code. Keep in the ICU. Discussed with Dr Tavares. Subjective Subjective Interval history since last seen: Mr Mandujano feels better. His breathing is better. He hasn't been coughing. Had an episode of dyspnea/desaturation with exertion (trying to urinate) last night and a much less severe episode of same this morning, recovering quickly with rest. States he had a syncopal episode at home about a week ago while not wearing his oxygen. He had felt short of breath and was trying to get to a chair and had fainted. He did feel his heart race at the time and felt short of breath. Denies dizziness, CP, SOB at rest, nausea. He is on 5 L of O2 by NC this morning. Exam Narrative Exam Narrative: General: Pleasant male who is sitting up in bed, A&Ox3, looks better HEENT: EOMI, MMM Heart: irregularly irregular rhythm, no m/r/g Lungs: I hear crackles mid-way up L lung today; otherwise, CTAB Abdomen: soft, nontender, nondistended Extremities: trace edema BLEs. Objective Last Vital Signs Temp 36.6 C 10/18/22 00:15 Pulse 81 10/18/22 06:38 Resp 20 10/18/22 07:00 BP 105/72 10/18/22 06:00 Pulse Ox 97 10/18/22 08:02 Laboratory Results - last 24 hr 10/17/22 10/18/22 10/18/22 00:15 05:40 05:40 WBC 14.61 H RBC 4.50 Hgb 14.4 Hct 42.4 MCV 94 MCH 32.0 MCHC 34.0 RDW 12.6 Plt Count 164 MPV 10.5 Immature Gran % 0.5 Neutrophils % 88.5 Lymphocytes % 3.6 Monocytes % 7.3 Eosinophils % 0.0 Basophils % 0.1 Nucleated RBC % 0.0 Absolute Neutrophils 12.93 H Absolute Lymphocytes 0.53 L Absolute Monocytes 1.07 H Absolute Eosinophils 0.00 Absolute Basophils 0.01 Sodium 137 Potassium 4.1 Chloride 101 Carbon Dioxide 24.8 Anion Gap 11.2 H BUN 41 H Creatinine 1.4 H Est GFR (CKD-EPI 2020) 54.07 Glucose 154 H Calcium 9.0 Magnesium 2.1 C-Reactive Protein 6.79 H Urine Legionella Ag Negative Multi-Disciplinary Checklist Lines/Tubes CENTRAL LINE: no ARTERIAL LINE: no ADKINS: no ENDOTRACHEAL TUBE: no ICU Maintenance GLUCOSE 140-180mg/dL: yes NUTRITION AT GOAL: yes PRESSURE ULCER: no RESTRAINTS: no ANTIBIOTICS(if yes, consider Stewardship): Yes Social Issues FAMILY UPDATED: yes PT/OT: yes GOALS/DISPOSITION/MATERIALS MANAGEMENT SUPERVISOR: yes CODE STATUS: Full Prophylaxis DVT PROPHYLAXIS: yes GI PROPHYLAXIS: yes, Indication: on steroids Time Spent with Patient Time Spent with Patient: 25-34 minutes Time was spent: preparing to see the patient(eg.review tests), obtaining and/or reviewing separately otained hiistory, ordering medications,tests, procedures, referring, communicating with other health field care coordinator, indepentently interpreting results, counseling the patient and care coordination
[2022-10-18] MEDS: cefTRIAXone 2 GM/50 ML BAG IVPB (10:44)
--- NOTE | 2022-10-18 14:25 | PT.INTREAT ---
Date of service: 10/18/22 Time of Service: 14:02 PT Notes Visit Reasons: Acute on Chronic Hypoxic Respiratory Failure,ILD F Inpatient Physical Therapy Treatment Note [facility] Date: 10/18/22 PRECAUTIONS: Fall, standard, activity as tolerated, telemetry in place, IV access in place, patient on 4L supplemental O2 via nasal cannula at rest. SUBJECTIVE: Patient sitting up in chair, agreeable to therapy, spouse present. OBJECTIVE: PAIN: none reported BED MOBILITY/TRANSFERS Sit-stand: CGA Stand-sit: CGA Bed-Chair: CGA Chair-bed: CGA GAIT Assistive Device: FWW Weight bearing: Full Assist: CGA, wheelchair follow out of an abundance of caution. SBA would have been appropriate. Distance: 220 feet Deviation: extreme reduced nimco, partially corrected with verbal cues. Reduced step length. Good step height. No LOB. VITALS: SaO2 hovers around 88-91 with ambulation on 8L/min supplemental O2 via nasal cannula (increased under direction from BASILIO Bansal). NEURO KRYSTAL: Instructed patient on pursed lip breathing, diaphragmatic breathing, gave tactile feedback to encourage patient to breath into low back / posterior diaphragm. Instructed on breathing before, during, and after ambulation. Educated on purpose of pursed lip breathing. ASSESSMENT: Patient tolerates therapy well, is sitting in chair at end of treatment, comfortable, on 3L/min supplemental O2 via nasal cannula with SaO2 at 96%. PLAN: Continue global strengthening per plan of care until patient is medically cleared for discharge. TREATMENT CODE/TIME: 96671 Neuro krystal 20 minutes beginning at 14:02
--- NOTE | 2022-10-18 15:20 | RESPIRATORY ---
Patient has current oxygen supplies from [facility] at home. Patient stated that he has a portable concentrator that is too big and heavy for him to carry around with him. Rosaura Reyna in our pulmonary clinic is currently working with [employer] to try and get a regular home concentrator and a more portable oxygen system for the patient upon discharge. Please connect with Rosaura to communicate when the patient will be discharged.
--- NOTE | 2022-10-18 17:22 | RESPIRATORY ---
Pt's own Respironic's Dreamstation with Airfit size medium mask. CPAP of 6 with 2L O2 bleed in. DME: [facility]
--- NOTE | 2022-10-18 18:08 | IN_ITS ---
Date of service: 10/18/22 PT Notes Visit Reasons: Acute on Chronic Hypoxic Respiratory Failure,ILD F Physical Therapy Inpatient Initial Evaluation Date: 10/18/2022 Referring Doctor: Jacqueline Mckeon MD PT Orders: PT CONSULT: Limited ability Precautions: Fall. Standard. Activity as tolerated. Patient Profile/Admitting Diagnosis: Prasad is a 72-year-old male patient admitted for management of acute on chronic respiratory failure, intertitial lung disease, acute CHF, syncope, CKD, AF, sleep apnea. hyperlipidemia, and hypertensive disorder. PMHX: All Active Problems?(Updated 10/16/22 @ 21:19 by Guy Spears MD) Acute congestive heart failure (Acute) Discharge planning issues (Acute) Acute and chronic respiratory failure (Acute) Backache (Acute) Carpal tunnel syndrome of right wrist (Acute) Cervical radiculopathy (Acute) Chronic kidney disease (CKD) (Chronic) Depressive disorder (Chronic) Eustachian tube disorder (Acute) Fibrosis, lung (Acute) Hyperlipidemia (Acute) Hypertensive disorder (Chronic) Interstitial lung disease (Acute) Sleep apnea, obstructive (Chronic) Periodic limb movement disorder (Acute) Right sided sciatica (Acute) Syringomyelia (Acute) Personal history of nicotine dependence (Acute) Medical History?(Updated 10/16/22 @ 21:19 by Guy Spears MD) Atrial fibrillation F/U with cards last appt ? 10/01/22. Scheduled for stress test and ECHO in 11/02/2022Malignant neoplasm of prostate Surgical History?(Updated 01/13/22 @ 14:04 by Suze Guerrero) H/O hemorrhoidectomy H/O hernia repair History of carpal tunnel surgery History of colonoscopy History of lung biopsy History of radical prostatectomy Hx of tonsillectomy Social History/Home Situation: Lives with Surekha in a private home. Independent with all aspects of ADLs prior to surgery. Works as a maintenance department in the facility. Equipment Owned/DME: None Subjective: Feels much better. States that he has been on oxygen supplementation at home. Objective: General Observation: On O2 supp via NC. Telemetry monitoring in place. Mental Status: Alert and oriented as to person, place, time, and purpose. Able to pay attention, focus, and respond appropriately. Pain: Denies Vital Signs: No signs of orthostasis as taken at start of PT session. ROM: Right Upper Extremity: Shoulder Flexion WFL. Shoulder abduction WFL. Elbow flexion WFL. Wrist flexion WFL. Functional opening and closing of hand WFL. Left Upper Extremity: Shoulder Flexion WFL. Shoulder abduction WFL. Elbow flexion WFL. Wrist flexion WFL. Functional opening and closing of hand WFL. Right Lower Extremity: Hip flexion WFL. Hip abduction WFL. Knee flexion WFL. Ankle dorsiflexion WFL. Ankle plantarflexion WFL. Left Lower Extremity: Hip flexion WFL. Hip abduction WFL. Knee flexion WFL. Ankle dorsiflexion WFL. Ankle plantarflexion WFL. Strength: Right Upper Extremity: Shoulder flexors 4/5. Shoulder abductors 4/5. Elbow flexors 5/5. Elbow extensors 5/5. Aquatic Biologist strong. Left Upper Extremity: Shoulder flexors 4/5. Shoulder abductors 4/5. Elbow flexors 5/5. Elbow extensors 5/5. Aquatic Biologist strong. Right Lower Extremity: Hip flexors 4/5. Hip abductors 4/5. Knee flexors 5/5. Knee extensors 5/5. Ankle dorsiflexors 5/5. Ankle plantarflexors 5/5. Left Lower Extremity: Hip flexors 4/5. Hip abductors 4/5. Knee flexors 5/5. Knee extensors 5/5. Ankle dorsiflexors 5/5. Ankle plantarflexors 5/5. Bed Mobility/Transfers: Rolling independent Supine to sit supervision Sit to supine supervision Sit to stand stand by assist with FWW to conserve energy Stand to sit stand by assist with FWW to conserve energy Bed to reclining chair stand by assist with FWW to conserve energy Gait: Instructed patient with level surface ambulation of 75 feet requiring stand by assist. Walker used to conserve energy and minimize oxygen desaturation. O2 supplement titrated up to 6L/minute and needed to be moved up to 8 L midway through the walk due to desaturation to 86%. Moderate cueing needed for diaphragmatic breathing. Nurse Bansal provided wheelchair follow and stand by assist for safety. Minimal shortness of breath and one standing rest needed. Day slowed. No LOB. Gait pattern otherwise unremarkable. Balance: Static Sitting: Normal Dynamic Sitting: Normal Static Standing: Good Dynamic Standing: Good Special Tests: Mobility Limitations Standardized Measure [facility] AM-PAC 6 clicks Basic Mobility Inpatient Short Form: Raw Score: 23 CMS Score: 11% deficit Informed Consent/Education: Patient was instructed in purpose of PT consult and plan of care. Agreeable to proceed with established PT POC to achieve personal goals. Assessment: Gait steady, walker used for energy conservation and for optimized activity tolerance only. Patient desaturated to 86% during the first 15 feet on 6L but maintained above 88% on 8L during the rest of the walk. Will continue to determine if walker is needed prior to D/C to home. Patient presents with clinical signs and symptoms consistent with current/admitting diagnoses that have resulted to mobility limitations, gait instability, generalized weakness, and overall ADL decline as demonstrated by the following impairment level findings: 1. Impaired sitting/standing balance 2. Impaired activity tolerance 3. Shortness of breath with desaturation to 86% on 6L O2 supp Impairments are contributing to the following functional limitations: 1. Difficulty with ambulation without assistive device 2. Increased completion time for mobility ADL performance 3. Difficulty with managing steps alone safely Patient is assessed as a [id number] moderate complexity based on the following: History: 72-year-old male with past medical history as indicated above Examination: Demonstrable impairment in strength, balance, and mobility level with underlying impairments and functional limitations as exhibited above as well as deficit score of 11% utilizing the [facility] Mobility Inpatient Short Form Presentation: Evolving Decision Makin moderate complexity Goals: Goals X1 week 1. Supine-Sit independent 2. Sit-Supine independent 3. Sit-Stand independent 4. Stand-Sit independent with no AD 5. Bed-Chair independent with no AD 6. Chair-Bed independent with no AD 7. Independent gait on level surface with use of FWW for at least 300 feet without report of pain nor dyspnea 8. Independent stair negotiation while holding onto B rails for at least 5 steps without report of pain nor dyspnea 9. Independent with home exercise program 10. Good static and dynamic standing balance/tolerance Plan of Care/Treatment Plan: 1-2x/day, 7 days/week x 1 week. Plan of care has been reviewed with the APPRAISER ART providing the service under Physical Therapy direction. Initiate Physical Therapy intervention for pain management as needed, strengthening, bed mobility, transfers, gait, stairs, balance training, and use of assistive device. DISCHARGE RECOMMENDATIONS: [] Home with no services [] [X] Home with services. Patient will benefit from home health PT services in order to progress mobility level using least restrictive assistive ambulatory device, assess home safety, identify additional equipment needs, and establish a functional maintenance program that will increase ability of patient to remain at home. [] Home with outpatient PT [] [] SNF for continued rehabilitation [] [] Skilled Nursing Care [] [] SNF versus LTC based on ability to participate and progress [] TREATMENT CODE/TIME: 87964 x 30 minutes (1 unit) beginning at 11:45 AM. Thank you for the opportunity to participate in the care of this patient. Stacy Hart PT, DPT, CLT [facility] [place], [place]
[2022-10-18 22:59] LABS: Streptococcus Pneumoniae Ag, U Negative (Negative)
[2022-10-19] VITALS (89 sets, daily range): BP systolic 105–147; BP diastolic 75–88; PULSE 53–128; RESP 1–97; TEMP 35.9–36.3; O2SAT 83–97
[2022-10-19] MEDS: Albuterol/Ipratropium 3 ML UPD VIAL UPD ×3 (05:24→18:20)
[2022-10-19] MEDS: Normal Saline Flush 10 ML SYR IVP ×2 (05:26→08:37)
[2022-10-19 06:40] LABS: Abs Immature Grans 0.09 10^3/uL (0.0-0.06); Absolute Basophil Count 0.02 10^3/uL (0.0-0.2); Absolute Lymphocyte Count 0.95 10^3/uL (1.2-3.4); Absolute Monocyte Count 1.28 10^3/uL (0.1-0.8); Absolute Neutrophil Count 14.05 10^3/uL (1.2-6.7); Basophils % 0.1; Eosinophils % 0.1; HCT 46.7 % (40.0-50.0); HGB 15.8 g/dL (13.5-17.5); Immature Grans % 0.5; Lymphocytes % 5.8; MCH 32.2 pg (27.0-33.0); MCHC 33.8 % (32.0-36.0); MCV 95 fL (80-95); MPV 10.1 fL (8.0-11.0); Monocytes % 7.8; Neutrophils % 85.7; Platelet Count 234 10^3/uL (130-400); RDW 12.9 % (11.8-14.1); RDW-SD 44.9 fL
[2022-10-19 06:43] LABS: Absolute Eosinophil Count 0.02 10^3/uL (0.0-0.7)
--- NOTE | 2022-10-19 06:49 | PUCC_ITS ---
General Date of Service Date of service: 10/19/22 Time of Service: 06:49 Reason for Admission to ICU: Hypoxic respiratory failure Assessment and Plan Assessment and plan (1) Acute congestive heart failure: Status: Suspected (2) Acute and chronic respiratory failure: Status: Acute (3) Interstitial lung disease: Status: Acute (4) Sleep apnea, obstructive: Status: Chronic (5) Atrial fibrillation: (6) Leukocytosis: Status: Acute Assessment and plan: This is a 72 yo who is admitted to the ICU for hypoxic respiratory failure. I w as working him up for a an ILD flare as an outpatient. His Lasix had been stopped due to low blood pressure at [facility] and he developed pretty rapid volume overload as the cause for his acute decompensated respiratory failure. This has been dramatically reversed through diuresis. I would recoomend placement back on him home Lasix dosing now that he has effectively been diuresed. I do still want to treat him for an ILD flare with a prednisone taper. I will also plan to repeat and echo as an outpatient, after ILD exacerbation treatment and if he continues to be symptomatic and with an elevated PAP, consider Teo. His prior refrigerating technician did attempt OFEV with him, but reports that he developed colitis with this so it was discontinued - I am unclear whether a dose reduction was attempted - we will revisit this seeing as he is now having an ILD flare. He is open to re-trying OFEV, so I will start working on the PA for this. He no longer needs ICU level care. Recommendations Pulmonary: Hypoxic respiratory failure - supplemental O2 for sats >90% - VibraPEP and IS - diuresis to euvolemia - out of bed to chair ILD exacerbation - recommend starting 40mg prednisone daily for 2 weeks, then: - 30mg for 2 weeks, 20mg for 2 week, 10mg for 1 week, 5mg for 1 week ( I have ordered outpatient Rx) - start Bactrim ppx while on 20mg prednisone or greater (I have ordered outpatient Rx - no bronchoscopy - fu fungitell and urine antigens - continue azithro - 5 day total - stop ceftriaxone - will order OFEV to start as an outpatient MAR - CPAP at night Cardiac: CHF exacerbation - diuresis to euvolemua - may need to back off tomorrow given Cr increase - formal echo pending A. fib - restarted Eliquis Renal: CKD - continue to monitor I&O: Intake & Output 10/16/22 10/17/22 10/18/22 10/19/22 23:59 23:59 23:59 23:59 Intake Total 900 / 900 2688 / 2688 1240 / 1240 240 / 240 Output Total 1550 / 2000 3700 / 3700 3825 / 3825 625 / 625 Balance -650 / -1100 -1012 / -1012 -2585 / -2585 -385 / -385 Weight 88.4 kg 91.1 kg 84.3 kg Daily Fluid Goal:: even GI Nutrition: OK for diet Date of Last Bowel Movement: 10/18/22 Hematologic: Leukocytosis - continue to monitor Neurologic: No acute concerns Endocrine: No acute concerns Lines: PIV Prophylaxis: Eliquis Protonix Code Status: Resuscitation Status Full Code Subjective Critical and life-threatening events over the past 24 hours: Prasad has continued to diurese and is now 4.6L negative. His echo did find moderate pulmonary hypertension. His procalcitonin is negative, urine legionella is negative and has a negative sputum culture. His fungal serologies are still pending. Prasad is feeling much better today. His O2 requirements have significantly improved. We discussed another trial of OFEV given the exacerbation and his declining lung function. He is open to re-trying this at a lower dose. Exam Narrative Exam Narrative: Gen: NAD, normal respiratory effort, well-nourished HENT: PERRL Chest: No respiratory distress, normal appearance of chest, bibasilar crackles Heart: regular rate and rhythym, no murmurs, rubs or gallops Abdomen: Non-distended, soft, non tender Extremities: No clubbing, edema, cyanosis, rashes Neuro: AAOx3 , non focal Psych: cooperative, appropriate mental affect Most Recent VS/Results Last Vital Signs Temp 36.1 C L 10/19/22 05:26 Pulse 72 10/19/22 05:54 Resp 97 H 10/19/22 05:54 BP 127/81 10/19/22 05:38 Pulse Ox 96 10/19/22 05:54 Laboratory Results - last 24 hr 10/17/22 10/18/22 10/18/22 00:15 05:40 05:40 WBC 14.61 H RBC 4.50 Hgb 14.4 Hct 42.4 MCV 94 MCH 32.0 MCHC 34.0 RDW 12.6 Plt Count 164 MPV 10.5 Immature Gran % 0.5 Neutrophils % 88.5 Lymphocytes % 3.6 Monocytes % 7.3 Eosinophils % 0.0 Basophils % 0.1 Nucleated RBC % 0.0 Absolute Neutrophils 12.93 H Absolute Lymphocytes 0.53 L Absolute Monocytes 1.07 H Absolute Eosinophils 0.00 Absolute Basophils 0.01 Sodium 137 Potassium 4.1 Chloride 101 Carbon Dioxide 24.8 Anion Gap 11.2 H BUN 41 H Creatinine 1.4 H Est GFR (CKD-EPI 2020) 54.07 Glucose 154 H Calcium 9.0 Magnesium 2.1 C-Reactive Protein 6.79 H Urine Legionella Ag Negative 10/19/22 06:10 WBC 16.40 H RBC 4.90 Hgb 15.8 Hct 46.7 MCV 95 MCH 32.2 MCHC 33.8 RDW 12.9 Plt Count 234 MPV 10.1 Immature Gran % 0.5 Neutrophils % 85.7 Lymphocytes % 5.8 Monocytes % 7.8 Eosinophils % 0.1 Basophils % 0.1 Nucleated RBC % 0.0 Absolute Neutrophils 14.05 H Absolute Lymphocytes 0.95 L Absolute Monocytes 1.28 H Absolute Eosinophils 0.02 Absolute Basophils 0.02 Sodium Potassium Chloride Carbon Dioxide Anion Gap BUN Creatinine Est GFR (CKD-EPI 2020) Glucose Calcium Magnesium C-Reactive Protein Urine Legionella Ag Review of Systems All systems reviewed & are unremarkable except as noted in HPI and below Time spent with patient Time spent in Critical Care: 45 Time spent in Critical care included: Coordination of care, Chart review, Documenting critically ill care, Time at immediate bedside and Discussing critically ill care with other medical staff
[2022-10-19 06:54] LABS: Anion Gap 9.5 mmol/L (3-11); BUN 49 mg/dL (7-18); C-Reactive Protein 3.37 mg/dL (0.0-0.3); CO2 28.5 mmol/L (21.0-32.0); CREATININE 1.4 mg/dL (0.70-1.30); Calcium 9.5 mg/dL (8.5-10.1); Chloride 97 mmol/L (98-107); Estimated GFR 54.07 (mL/min/1.73m2); Glucose 135 mg/dL (74-106); Magnesium 2.2 mg/dL (1.8-2.4); Potassium 4.7 mmol/L (3.5-5.1); Sodium 135 mmol/L (136-145)
[2022-10-19] MEDS: Furosemide 20 MG/2 ML VIAL IVP (08:34)
[2022-10-19] MEDS: Gabapentin 100 MG CAP PO ×3 (08:35→19:51)
[2022-10-19] MEDS: Pantoprazole 40 MG TABCR PO (08:35)
[2022-10-19] MEDS: Sertraline 50 MG TAB 100 MG PO ×2 (08:35→19:51)
[2022-10-19] MEDS: predniSONE 20 MG TAB 40 MG PO (08:35)
[2022-10-19] MEDS: Sulfameth/Trimeth DS TAB 1 TAB PO (08:36)
[2022-10-19] MEDS: Azithromycin 250 MG TAB PO (08:36)
[2022-10-19] MEDS: Metoprolol CR 50 MG TABCR PO (08:37)
[2022-10-19] MEDS: Apixaban 5 MG TAB PO ×2 (08:37→19:51)
--- NOTE | 2022-10-19 10:57 | W.PM.PROGNOT ---
Date of Service Date of service: 10/19/22 Time of Service: 10:57 Assessment and Plan Assessment and plan (1) Acute and chronic respiratory failure: Status: Acute Assessment and plan: Due to primarily pulmonary edema/pulmonary hypertension with likely ILD flare component. Acute infectious process is less likely. I favor pulmonary edema due to rapid improvement in oxygenation. Continue steroids, empiric abx, diuretics, nebs. Switch to PO steroids. Await testing for blasto, histo, fungitell. Urine strep and legionella antigens are negative. Mycoplasma sputum is still pending. Wean O2 as tolerated. No need for bronchoscopy on this admission due to such rapid improvement in hypoxic respiratory failure. Reinitiation of ofev as outpatient is being considered. (2) Interstitial lung disease: Status: Acute Assessment and plan: As above (3) Acute congestive heart failure: Status: Suspected Assessment and plan: LVEF is 55%, moderate mitral and tricuspid regurgitation, RVSP 46 mmHg. Continue diuresis- switch to PO furosemide. Will need outpatient echo once fully euvolemic to reassess RVSP to see if he would need therapy for pulmonary hypertension. (4) Syncope: Status: Acute Assessment and plan: At home, 1 week ago. Suspect that this was in setting of hypoxia causing tachycardia. (5) Chronic kidney disease (CKD): Status: Chronic Assessment and plan: Monitor Cr w/ diuresis. (6) Atrial fibrillation: Assessment and plan: Continue apixaban, home metoprolol. Continue cardiac monitoring. (7) Sleep apnea, obstructive: Status: Chronic Assessment and plan: Continue CPAP (has it at home, but our settings here change nightly based on O2 requirements). (8) Hypertensive disorder: Status: Chronic Assessment and plan: Continue metoprolol. (9) Hyperlipidemia: Status: Acute Assessment and plan: Continue atorvastatin. (10) Discharge planning issues: Status: Acute Assessment and plan: Full code. Transfer out of the ICU. Anticipate discharge home in the next 24-48 hrs. Would need exercise oximetry. Subjective Subjective Interval history since last seen: Mr Mandujano states he is feeling well. Nurses note that he does desat with minimal activity, but yesterday during the day there was a point when he did not need oxygen at all, though did need up to 8 L walking. Denies dizziness, CP, SOB, n/v. Does endorse a cough and is requesting cough medications. Would also like us to touch base with his ip network architect. Transferred out of the ICU. Exam Narrative Exam Narrative: General: Pleasant male who is ambulating in the room with O2 sats dropping to mid-80s on 2L of O2, A&Ox3, looks better HEENT: EOMI, MMM Heart: irregularly irregular rhythm, no m/r/g Lungs:crackles mid-way up L lung, otherwise CTA Abdomen: soft, nontender, nondistended Extremities: trace edema BLEs. Objective Last Vital Signs Temp 36.3 C L 10/19/22 07:12 Pulse 71 10/19/22 10:13 Resp 29 H 10/19/22 10:13 BP 105/79 10/19/22 10:13 Pulse Ox 91 L 10/19/22 10:01 Laboratory Results - last 24 hr 10/17/22 10/19/22 10/19/22 00:15 06:10 06:10 WBC 16.40 H RBC 4.90 Hgb 15.8 Hct 46.7 MCV 95 MCH 32.2 MCHC 33.8 RDW 12.9 Plt Count 234 MPV 10.1 Immature Gran % 0.5 Neutrophils % 85.7 Lymphocytes % 5.8 Monocytes % 7.8 Eosinophils % 0.1 Basophils % 0.1 Nucleated RBC % 0.0 Absolute Neutrophils 14.05 H Absolute Lymphocytes 0.95 L Absolute Monocytes 1.28 H Absolute Eosinophils 0.02 Absolute Basophils 0.02 Sodium 135 L Potassium 4.7 Chloride 97 L Carbon Dioxide 28.5 Anion Gap 9.5 BUN 49 H Creatinine 1.4 H Est GFR (CKD-EPI 2020) 54.07 Glucose 135 H Calcium 9.5 Magnesium 2.2 C-Reactive Protein 3.37 H Ur Strep pneumoniae Ag Negative Objective Narrative Objective Narrative: echo: Normal left ventricular wall thickness and chamber size.? Ejection fraction is 55 to 60%.? Wall motion is normal Normal right ventricular size and systolic function Both atria are mildly dilated Trileaflet aortic valve without stenosis or regurgitation Normal mitral valve with moderate regurgitation Normal tricuspid valve with moderate regurgitation.? Estimated right ventricular systolic pressure is 46 mmHg Mildly dilated ascending aorta 0.7 cm CXR 10/18/22: Extensive bilateral interstitial disease, as evident on the recent outside CT scan of 10/12/2022. Time Spent with Patient Time Spent with Patient: 35-49 minutes Time was spent: preparing to see the patient(eg.review tests), obtaining and/or reviewing separately otained hiistory, ordering medications,tests, procedures, referring, communicating with other health insurance healthcare consultant, indepentently interpreting results, counseling the patient and care coordination
--- NOTE | 2022-10-19 11:40 | PT.INTREAT ---
Date of service: 10/19/22 Time of Service: 10:00 PT Notes Visit Reasons: Acute on Chronic Hypoxic Respiratory Failure,ILD F Inpatient Physical Therapy Treatment Note [facility] Date: 10/19/22 PRECAUTIONS: Fall, standard, activity as tolerated, IV in place LUE, Telemetry in place, SaO2 sensor R 3rd digit. SUBJECTIVE: Morning: Patient feels good, sitting up in chair, agreeable to therapy. AFTERNOON: Patient spotted walking with BASILIO Bansal. RT wants to walk with PT. This FAMILY SERVICE CASEWORKER joins ambulatory excursion, patient reports feeling good, BASILIO Bansal reports difficulty getting a good pleth for accurate SaO2 reading. OBJECTIVE: PAIN: none reported BED MOBILITY/TRANSFERS Rolling L/R: Independent Supine-sit: Independent Sit-supine: Independent Sit-stand: SBA Stand-sit: SBA Bed-Chair: SBA Chair-bed: SBA GAIT Assistive Device: FWW Weight bearing: full Assist: SBA, assist with managing tele leads, O2 tubing etc as well as portable O2 tank Distance: mornin feet Afternoon 200 feet, seated rest, 200 feet Deviation: head forward posture. Cueing for pursed lip breathing, tactile cues to breathe in to lower lungs. Encouraged deep diaphragmatic inhales and active exhales. Patient demonstrates good understanding. VITALS: mornin-91 on 6L, poor pleth reading, cold hands - BASILIO Bansal thinks his actual SaO2 may be higher than what was reading. Afternoon 88-91 on 3L, again with poor pleth. When pleth is good, SaO2 closer to 91-94. Vitals monitored by RN or RT throughout. NEURO: Cued pursed lip breathing and active exhalation throughout session. Educated patient on Transverse Abdominus, cued activation in supine and in sitting, encouraged active abdominal engagement for more full exhales. MANUAL: STM to shoulders and neck in sitting, special attention to levator scapulae, upper traps, scalenes. Grade 1 mobilizations to first rib. Sidelying lateral rib stretch with gentle distraction / overpressure. Throughout session patient reports pressure to feel good, not excessive. Educated patient on self-mob to first rib with sheet: will demonstrate and give printout this afternoon. THERACT: afternoon patient participates in ambulation, breath training, self-mobilization training ASSESSMENT: Patient tolerates therapy well, is seated EOB at end of treatment with plans to return to his chair. PLAN: Continue global strengthening, breath training per plan of care until patient is medically cleared for discharge. This afternoon, find ear probe for SaO2 so that patient's cold hands do not continue to give false low readings. TREATMENT CODE/TIME: morning 68051 Manual 28 minutes, [id number] Neuro 14 minutes beginning at 10:00. afternoon [id number] Ther Act 29 minutes beginning at 12:49
[2022-10-19] MEDS: Benzonatate 100 MG CAP 200 MG PO ×2 (12:09→19:51)
--- NOTE | 2022-10-19 14:38 | CHAPLAIN ---
I viisted with Prasad and his . They were both very pleasant. They hope Prasad will be discharged tomorrow. He's been dealing with respiratory issues. They live in [place]. Prasad has had some respiratory/breathing issues that have been scary for him.
[2022-10-19 15:19] LABS: Blastomyces Ag Result Not Detected; Blastomyces Ag Value Not Detected
[2022-10-19 15:51] LABS: Fungitell Qualitative Negative (Negative); Fungitell Quantitative Value <31 pg/mL (<60 pg/mL)
--- NOTE | 2022-10-19 16:12 | CMPROGNOTE_ITS ---
Date of service: 10/19/22 Time of Service: 16:12 Care Management Progress Note Progress Note Text Progress Note Text: S/O: Prasad and his , Surekha, were sitting in chair in his room visiting when CM met with them. Prasad stated that he feels that he is improving, and he is able to move easier today. He continues to work with PT and RT. PT is recommending PT. RT is supporting Prasad with changing his O2 equipment at home, as he is looking for something more portable. Pat inquired about support with Eliquis, as their copay is very high. CM will provide Prasad with a Benefit Review form for Eliquis, which will need to be signed by his PCP. Prasad and Surekha talked about an upcoming trip they plan to take in Spring 2023 to [place], which they are very excited for. CM will continue to follow. A: Prasad is a 72 year old male admitted to [facility] on 10/16/22 for acute on chronic hypoxic respiratory failure. P: Anticipate Prasad will discharge home with no new services when medically cleared by provider. He will follow up with his PCP, Cushion Maker and plan of care and transport with family. CM will support Prasad and assess for discharge concerns. ?
[2022-10-19] MEDS: Furosemide 20 MG TAB PO (16:57)
[2022-10-19] MEDS: Metoprolol CR 100 MG TABCR PO (19:51)
[2022-10-19] MEDS: Atorvastatin 40 MG TAB PO (19:54)
[2022-10-20] VITALS (34 sets, daily range): BP systolic 97–112; BP diastolic 64–74; PULSE 61–120; RESP 1–36; TEMP 35.9–36.8; O2SAT 87–99
[2022-10-20] MEDS: Albuterol/Ipratropium 3 ML UPD VIAL UPD ×3 (06:42→17:58)
[2022-10-20 07:30] LABS: HCT 48.6 % (40.0-50.0); HGB 16.3 g/dL (13.5-17.5); MCH 31.5 pg (27.0-33.0); MCHC 33.5 % (32.0-36.0); MCV 94 fL (80-95); MPV 9.8 fL (8.0-11.0); Platelet Count 215 10^3/uL (130-400); RBC 5.17 10^6/uL (4.36-5.78); RDW 12.8 % (11.8-14.1); RDW-SD 44.3 fL; WBC 15.14 10^3/uL (4.4-10.8)
[2022-10-20 07:48] LABS: Anion Gap 9.6 mmol/L (3-11); BUN 53 mg/dL (7-18); C-Reactive Protein 1.79 mg/dL (0.0-0.3); CO2 26.4 mmol/L (21.0-32.0); CREATININE 1.6 mg/dL (0.70-1.30); Calcium 9.2 mg/dL (8.5-10.1); Chloride 99 mmol/L (98-107); Estimated GFR 46.06 (mL/min/1.73m2); Glucose 98 mg/dL (74-106); Magnesium 2.3 mg/dL (1.8-2.4); Potassium 4.2 mmol/L (3.5-5.1); Sodium 135 mmol/L (136-145)
[2022-10-20 08:01] LABS: Absolute Lymphocyte Count 3.03 10^3/uL (1.2-3.4); Absolute Monocyte Count 1.36 10^3/uL (0.1-0.8); Absolute Neutrophil Count 10.75 10^3/uL (1.2-6.7); Diff Comment Manual Differential; RBC Morphology Normal
[2022-10-20] MEDS: Sertraline 50 MG TAB 100 MG PO ×2 (08:39→21:45)
[2022-10-20] MEDS: Metoprolol CR 50 MG TABCR PO (08:41)
[2022-10-20] MEDS: Gabapentin 100 MG CAP PO ×3 (08:41→21:45)
[2022-10-20] MEDS: Furosemide 20 MG TAB PO ×2 (08:41→15:29)
[2022-10-20] MEDS: Benzonatate 100 MG CAP 200 MG PO ×3 (08:42→21:45)
[2022-10-20] MEDS: Azithromycin 250 MG TAB PO (08:42)
[2022-10-20] MEDS: Pantoprazole 40 MG TABCR PO (08:42)
[2022-10-20] MEDS: Apixaban 5 MG TAB PO ×2 (08:57→21:44)
[2022-10-20] MEDS: predniSONE 20 MG TAB 40 MG PO (08:57)
[2022-10-20] MEDS: Sulfameth/Trimeth DS TAB 1 TAB PO (08:58)
--- NOTE | 2022-10-20 10:31 | PT.INTREAT ---
Date of service: 10/20/22 Time of Service: 09:26 PT Notes Visit Reasons: Acute on Chronic Hypoxic Respiratory Failure,ILD F Inpatient Physical Therapy Treatment Note [facility] Date: 10/20/22 PRECAUTIONS: Fall, standard, activity as tolerated, 3L supplemental O2 via nasal cannula, telemetry in place. SUBJECTIVE: Patient reports feeling better and better. Sitting up in chair, agreeable to therapy. AFTERNOON: Patient sitting up in chair, agreeable to therapy, RT Sia present. OBJECTIVE: PAIN: none reported BED MOBILITY/TRANSFERS Rolling L/R: Independent Supine-sit: Independent Sit-supine: Independent Sit-stand: Independent Stand-sit: Independent Bed-Chair: Independent Chair-bed: Independent GAIT Assistive Device: none Weight bearing: full Assist: standby, assist with O2 tank Distance: 300 feet AFERNOON: 600 feet Deviation: Reduced step length, reduced arm swing. VITALS: SaO2 drops with ambulation on 3L to 84%, stopped to rest, patient slow to recover (>3 minutes) so this COMPENSATION AND BENEFITS MANAGER bumped O2 up to 4L. Patient oscillates between 88-96 on 4L. AFTERNOON: Vitals monitored by RT, Patient requires 2-3L O2 during ambulation to maintain SaO2 >88%. MANUAL: Created HEP and reviewed with patient. Patient demonstrates good understanding of all exercises. Access Code: [email or web address] URL: [email or web address] Date: 10/20/2022 Prepared by: Joselyn Vera Exercises - Standing Transverse Abdominis Contraction - 1 x daily - 7 x weekly - 3 sets - 10 reps - First Rib Mobilization with Strap - 1 x daily - 7 x weekly - 3 sets - 10 reps - Thoracic Sidebending with Towel Roll - 1 x daily - 7 x weekly - 3 sets - 10 reps - Walking with Pursed Lip Breathing - 1 x daily - 7 x weekly - 3 sets - 10 reps Hands on treatment included re-mobilizing first rib so patient is able to feel how much pressure to apply during self mobs. STAIRS: Patient ascends and descends 4 six inch stairs with single railing, SBA. Patient has 3 stairs to enter home with no railing. THERACT: AFTERNOON: Discussion with patient about home layout, patient concerns etc. ASSESSMENT: Patient tolerates therapy well. PLAN: Continue global progression of plan of care until patient is medically cleared for discharge. TREATMENT CODE/TIME: 15578 Gait 16 minutes, 18582 Manual Therapy 18 minutes beginning at 9:26 AFTERNOON: [id number] Ther Act 19 minutes beginning at 13:04
--- NOTE | 2022-10-20 13:57 | CMPROGNOTE_ITS ---
Date of service: 10/20/22 Time of Service: 14:08 Care Management Progress Note Progress Note Text Progress Note Text: S/O: Prasad was sitting up in his chair when CM met with him. He stated that he had a good night and he is feeling better today. His , Surekha was in the room visiting. She expressed concern regarding Prasad being discharged too early. Per report, MD and RT continue to monitor his O2 sats. PT stated that he is ambulating well. He will have an exercise oximetry walk today. Per RT, the Pulmonary office is working on his O2 equipment through [employer], as they are not happy with the concentrator they have due to it's limited portability. CM prov ided an [employer] benefit review form to Prasad today, which his PCP will sign for submission to [employer] in order to determine if they are eligible for a reduced cost. CM will continue to follow. A: Prasad is a 72 year old male admitted to [facility] on 10/16/22 for acute on chronic hypoxic respiratory failure. P: Anticipate Prasad will discharge home with no new services when medically cleared by provider. He will follow up with his PCP, [employer] and plan of care and transport with family. CM will support Prasad and assess for discharge concerns.
--- NOTE | 2022-10-20 17:32 | PGE_ITS ---
Date of Service Date of service: 10/20/22 Time of Service: 17:32 Assessment and Plan Assessment and plan (1) Acute and chronic respiratory failure: Status: Acute Assessment and plan: Due to primarily pulmonary edema/pulmonary hypertension with likely ILD flare component. Acute infectious process is less likely. I favor pulmonary edema due to rapid improvement in oxygenation. Fungal studies are negative. Urine strep and legionella antigens are negative. Mycoplasma sputum is still pending. Continue PO steroids, empiric abx, diuretics PO, nebs. Wean O2 as tolerated. No need for bronchoscopy on this admission due to such rapid improvement in hypoxic respiratory failure. Reinitiation of ofev as outpatient is being considered. (2) Interstitial lung disease: Status: Acute Assessment and plan: As above (3) Acute congestive heart failure: Status: Suspected Assessment and plan: LVEF is 55%, moderate mitral and tricuspid regurgitation, RVSP 46 mmHg. Continue PO furosemide, consider increase in dose. Will need outpatient echo once fully euvolemic to reassess RVSP to see if he would need therapy for pulmonary hypertension. (4) Syncope: Status: Acute Assessment and plan: At home, 1 week ago. Suspect that this was in setting of hypoxia causing tachycardia. (5) Chronic kidney disease (CKD): Status: Chronic Assessment and plan: Monitor Cr w/ diuresis. (6) Atrial fibrillation: Assessment and plan: Continue apixaban, home metoprolol. Continue cardiac monitoring. (7) Sleep apnea, obstructive: Status: Chronic Assessment and plan: Continue CPAP (has it at home, but our settings here change nightly based on O2 requirements). We will reasses O2 requirement today with increased pressures. (8) Hypertensive disorder: Status: Chronic Assessment and plan: Continue metoprolol. (9) Hyperlipidemia: Status: Acute Assessment and plan: Continue atorvastatin. (10) Discharge planning issues: Status: Acute Assessment and plan: Full code. Anticipate discharge home in the next 24-48 hrs. O2 rx may have to be adjusted on d/c. Subjective Subjective Interval history since last seen: Feels better today. Needs 1.5 L at rest, but desaturates with any activity. Required 3L of O2 to ambulate. NO dizziness, CP, SOB, n/v. Coughing up brownish sputum. We discussed negative fungal studies. I attempted to get in touch with the patient's fare enforcement officer Dr Shepherd, who, per patient, is [facility] fare enforcement officer, but [facility] did not have a pager number for him, and the [facility] cardiology clinic number went to voicemail. I will try again tomorrow. Exam Narrative Exam Narrative: General: Pleasant male who is sitting in a chair, A&Ox3, on 1.5 L of O2; also, seen ambulating in the hallway HEENT: EOMI, MMM Heart: irregularly irregular rhythm, no m/r/g Lungs:crackles mid-way up L lung, expiratory squeek Abdomen: soft, nontender, nondistended Extremities: no edema BLEs. Objective Last Vital Signs Temp 36.8 C 10/20/22 15:18 Pulse 80 10/20/22 15:18 Resp 20 10/20/22 15:18 BP 104/70 10/20/22 15:18 Pulse Ox 95 10/20/22 16:27 Laboratory Results - last 24 hr 10/20/22 10/20/22 06:50 06:50 WBC 15.14 H RBC 5.17 Hgb 16.3 Hct 48.6 MCV 94 MCH 31.5 MCHC 33.5 RDW 12.8 Plt Count 215 MPV 9.8 Immature Gran % See Differential Neutrophils % 71.0 Lymphocytes % 20.0 Monocytes % 9.0 Eosinophils % 0.0 Basophils % 0.0 Nucleated RBC % 0.0 Absolute Neutrophils 10.75 H Absolute Lymphocytes 3.03 Absolute Monocytes 1.36 H Absolute Eosinophils 0.00 Absolute Basophils 0.00 RBC Morphology Normal Sodium 135 L Potassium 4.2 Chloride 99 Carbon Dioxide 26.4 Anion Gap 9.6 BUN 53 H Creatinine 1.6 H Est GFR (CKD-EPI 2020) 46.06 Glucose 98 Calcium 9.2 Magnesium 2.3 C-Reactive Protein 1.79 H Time Spent with Patient Time Spent with Patient: 25-34 minutes Time was spent: preparing to see the patient(eg.review tests), obtaining and/or reviewing separately otained hiistory, ordering medications,tests, procedures, referring, communicating with other health rn patient care, indepentently interpreting results, counseling the patient and care coordination
[2022-10-20] MEDS: Metoprolol CR 100 MG TABCR PO (21:45)
[2022-10-20] MEDS: Atorvastatin 40 MG TAB PO (21:46)
[2022-10-20] MEDS: Normal Saline Flush 10 ML SYR IVP (21:47)
[2022-10-21] VITALS (15 sets, daily range): BP systolic 93–131; BP diastolic 64–88; PULSE 68–99; RESP 4–30; TEMP 36.4–36.5; O2SAT 77–97
--- NOTE | 2022-10-21 | DI.RAD_ITS ---
Exam(s) XR CHEST 2V PA LATERAL EXAM: XR CHEST 2V PA LATERAL CLINICAL HISTORY: assess infiltrate resolution TECHNIQUE: 2D digital imaging was performed. COMPARISON: CT CT CHEST HIGH RES WITHOUT CONT from 10/12/2022 FINDINGS: LUNGS: Low lung volumes. Severe interstitial fibrosis. No gross superimposed consolidation however this would be difficult to exclude. No pleural abnormality seen. HEART: Within normal limits for degree of inflation. AORTA: Normal diameter. BONES: Unremarkable for age. Soft tissues: Unremarkable. IMPRESSION: Severe pulmonary fibrosis. No change from recent prior exam. DATA REPOSITORY: RADIATION DOSE DELIVERED:
[2022-10-21] MEDS: Albuterol 2.5 MG/3 ML INH SOLN VIAL UPD (04:17)
--- NOTE | 2022-10-21 06:45 | W.PULMPROG ---
Assessment and Plan Assessment and plan (1) Acute congestive heart failure: Status: Suspected (2) Acute and chronic respiratory failure: Status: Acute (3) Interstitial lung disease: Status: Acute (4) Sleep apnea, obstructive: Status: Chronic Assessment and plan: This is a 72 yo who is admitted to the ICU for hypoxic respiratory failure now on med-surg. I was working him up for a an ILD flare as an outpatient. His Lasix had been stopped due to low blood pressure at [facility] and he developed pretty rapid volume overload as the cause for his acute decompensated respiratory failure. This has been dramatically reversed through diuresis. I would recommend placement back on him home Lasix dosing now that he has effectively been diuresed. I do still want to treat him for an ILD flare with a prednisone taper. I will also plan to repeat and echo as an outpatient, after ILD exacerbation treatment and if he continues to be symptomatic and with an elevated PAP, consider Tyvaso. His prior shipmaster did attempt OFEV with him, but reports that he developed colitis with this so it was discontinued - I am unclear whether a dose reduction was attempted - we will revisit this seeing as he is now having an ILD flare. He is open to re-trying OFEV, so I will start working on the PA for this. His overnight oximetry does find some overnight hypoxia and so 2LPM O2 bleed into his CPAP is recommended. Hypoxic respiratory failure - supplemental O2 for sats >90% - VibraPEP and IS - diuresis to euvolemia - out of bed to chair ILD exacerbation - recommend starting 40mg prednisone daily for 2 weeks, then: - 30mg for 2 weeks, 20mg for 2 week, 10mg for 1 week, 5mg for 1 week ( I have ordered outpatient Rx) - start Bactrim ppx while on 20mg prednisone or greater (I have ordered outpatient Rx - no bronchoscopy - fungal studies negative - continue azithro - 5 day total - will order OFEV to start as an outpatient MAR - CPAP at night - recommend starting 2LPM bleed O2 General Date Of Service Date of service: 10/21/22 Time of Service: 06:46 Reason for Consult: Hypoxic respiratory failure Subjective Note Note: Prasad is feeling well today. He did have an episode of hypoxia overnight related to not being on CPAP or oxygen. He had an overnight oximetry performed which does show he should be on O2 bled into his CPAP. Exam Narrative Exam Narrative: Gen: NAD, normal respiratory effort, well-nourished HENT: PERRL Chest: No respiratory distress, normal appearance of chest, bibasilar crackles Heart: regular rate and rhythym, no murmurs, rubs or gallops Abdomen: Non-distended, soft, non tender Extremities: No clubbing, edema, cyanosis, rashes Neuro: AAOx3 , non focal Psych: cooperative, appropriate mental affect Objective Last Vital Signs Temp 35.9 C L 10/20/22 21:43 Pulse 99 H 10/21/22 04:17 Resp 30 H 10/21/22 04:17 BP 129/88 10/21/22 04:17 Pulse Ox 92 10/21/22 04:40 Laboratory Results - last 24 hr 10/20/22 10/20/22 06:50 06:50 WBC 15.14 H RBC 5.17 Hgb 16.3 Hct 48.6 MCV 94 MCH 31.5 MCHC 33.5 RDW 12.8 Plt Count 215 MPV 9.8 Immature Gran % See Differential Neutrophils % 71.0 Lymphocytes % 20.0 Monocytes % 9.0 Eosinophils % 0.0 Basophils % 0.0 Nucleated RBC % 0.0 Absolute Neutrophils 10.75 H Absolute Lymphocytes 3.03 Absolute Monocytes 1.36 H Absolute Eosinophils 0.00 Absolute Basophils 0.00 RBC Morphology Normal Sodium 135 L Potassium 4.2 Chloride 99 Carbon Dioxide 26.4 Anion Gap 9.6 BUN 53 H Creatinine 1.6 H Est GFR (CKD-EPI 2020) 46.06 Glucose 98 Calcium 9.2 Magnesium 2.3 C-Reactive Protein 1.79 H Results Medications Medications: Active Medications Generic Name Dose Route Start Last Admin Trade Name Freq PRN Reason Stop Dose Admin Acetaminophen 0 mg 10/16/22 17:21 Acetaminophen 325 Mg Tab PO Q4H PRN PRN Al Hydrox/Mg Hydrox/Simethicone 30 ml 10/16/22 17:21 Mylanta Suspension 30 Ml Cup PO Q2H PRN PRN Albuterol Sulfate 2.5 mg 10/16/22 17:21 10/21/22 04:17 Albuterol 2.5 Mg/3 Ml Inh Soln Vial UPD 2.5 mg Q2H PRN PRN Administration Albuterol/Ipratropium 3 ml 10/16/22 18:00 10/21/22 00:52 Albuterol/Ipratropium 3 Ml Upd Vial UPD Not Given Q6H YAMILETH Apixaban 5 mg 10/18/22 08:30 10/20/22 21:44 Apixaban 5 Mg Tab PO 5 mg BID YAMILETH Administration Atorvastatin Calcium 40 mg 10/17/22 22:23 10/20/22 21:46 Atorvastatin 40 Mg Tab PO 40 mg HS YAMILETH Administration Azithromycin 250 mg 10/19/22 08:30 10/20/22 08:42 Azithromycin 250 Mg Tab PO 250 mg DAILY YAMILETH Administration Bacteriostatic Water 0 ml 10/17/22 09:00 10/17/22 10:13 Water,Injection,Bacteriostatic 30 Ml Vial IJ 1 ml DIRECTED PRN Administration Benzonatate 200 mg 10/19/22 12:00 10/20/22 21:45 Benzonatate 100 Mg Cap PO 200 mg TID YAMILETH Administration Calcium Carbonate 1,000 mg 10/17/22 19:38 10/17/22 20:17 Calcium Carbonate *Tums* 500 Mg Chew PO 1,000 mg TID PRN PRN Administration Device 1 each 10/16/22 22:00 Inhaler, Assist Device MC DIRECTED [facility] Dimethicone/Zinc Oxide 0 gm 10/16/22 17:21 Pepe Protect Cream 142 Gm Tube TP PRN PRN Docusate Sodium 100 mg 10/16/22 17:21 Docusate Sodium 100 Mg Cap PO TID PRN PRN Furosemide 20 mg 10/19/22 16:00 10/20/22 15:29 Furosemide 20 Mg Tab PO 20 mg BID@0830,1600 YAMILETH Administration Gabapentin 100 mg 10/17/22 08:30 10/20/22 21:45 Gabapentin 100 Mg Cap PO 100 mg TID YAMILETH Administration Sodium Chloride 500 mls @ 0 mls/hr 10/16/22 17:21 Saline 500ml Bag IV PRN PRN As Directed IV Miscellaneous Supplies 1 each 10/16/22 17:30 Iv Access IV DIRECTED [facility] Magnesium Hydroxide 30 ml 10/16/22 17:21 Milk Of Magnesia 30 Ml Cup PO DAILY PRN PRN Metoprolol Succinate 100 mg 10/18/22 20:00 10/20/22 21:45 Metoprolol Cr 100 Mg Tabcr PO 100 mg QPM YAMILETH Administration Metoprolol Succinate 50 mg 10/19/22 08:30 10/20/22 08:41 Metoprolol Cr 50 Mg Tabcr PO 50 mg DAILY YAMILETH Administration Pantoprazole Sodium 40 mg 10/17/22 07:30 10/20/22 08:42 Pantoprazole 40 Mg Tabcr PO 40 mg DAILY@0730 YAMILETH Administration Polyethylene Glycol 17 gm 10/16/22 17:21 Polyethylene Glycol 3350 17 Gm Packet PO DAILY PRN PRN Constipation Prednisone 40 mg 10/19/22 08:30 10/20/22 08:57 Prednisone 20 Mg Tab PO 40 mg DAILY YAMILETH Administration Sertraline HCl 100 mg 10/16/22 22:22 10/20/22 21:45 Sertraline 50 Mg Tab PO 100 mg BID YAMILETH Administration Sodium Chloride 0 ml 10/16/22 17:21 10/20/22 21:47 Normal Saline Flush 10 Ml Syr IVP 10 ml PRN PRN Administration Trimethoprim/Sulfamethoxazole 1 tab 10/19/22 08:30 10/20/22 08:58 Sulfameth/Trimeth Ds Tab PO 1 tab DAILY YAMILETH Administration Zolpidem Tartrate 5 mg 10/17/22 08:41 10/17/22 20:54 Zolpidem 5 Mg Tab PO 5 mg HS PRN PRN Administration Allergies No Known Allergies Allergy (Verified 10/15/22 11:30) Labs 10/20/22 06:50 10/20/22 06:50 Labs: 10/17/22 21:06 Sputum Sputum Culture - Preliminary Normal Kimberly 10/17/22 21:06 Sputum Gram Stain - Final Laboratory Tests Range/Units 10/16/22 10/17/22 10/17/22 21:50 00:15 00:15 WBC (4.4-10.8) 10^3/uL RBC (4.36-5.78) 10^6/uL Hgb (13.5-17.5) g/dL Hct (40.0-50.0) % MCV (80-95) fL MCH (27.0-33.0) pg MCHC (32.0-36.0) % RDW (11.8-14.1) % Plt Count (130-400) 10^3/uL MPV (8.0-11.0) fL Immature Gran % Neutrophils % Lymphocytes % Monocytes % Eosinophils % Basophils % Nucleated RBC % (0.0-0.3) % Absolute Neutrophils (1.2-6.7) 10^3/uL Absolute Lymphocytes (1.2-3.4) 10^3/uL Absolute Monocytes (0.1-0.8) 10^3/uL Absolute Eosinophils (0.0-0.7) 10^3/uL Absolute Basophils (0.0-0.2) 10^3/uL RBC Morphology PT (9.3-11.0) sec INR (0.9-1.1) D-Dimer (<500) ng/mlFEU Sodium (136-145) mmol/L Potassium (3.5-5.1) mmol/L Chloride (98-107) mmol/L Carbon Dioxide (21.0-32.0) mmol/L Anion Gap (3-11) mmol/L BUN (7-18) mg/dL Creatinine (0.70-1.30) mg/dL Est GFR (CKD-EPI 2020) (mL/min/1.73m2) Glucose (74-106) mg/dL Calcium (8.5-10.1) mg/dL Magnesium (1.8-2.4) mg/dL Ferritin (26-388) ng/mL Total Bilirubin (0.2-1.0) mg/dL Conjugated Bilirubin (0.0-0.2) mg/dL AST (15-37) U/L ALT (16-63) U/L Alkaline Phosphatase (46-116) U/L C-Reactive Protein (0.0-0.3) mg/dL Total Protein (6.4-8.2) g/dL Albumin (3.4-5.0) g/dL 25-OH Vitamin D Total (30-100) ng/mL Procalcitonin ng/mL TSH (0.36-3.74) uIU/mL Blastomyces Ag Result Blastomyces Ag Comment ng/mL COVID-19 Source Nasal/Nares SARS-CoV-2 (PCR) (Negative) Negative Urine Histoplasma Ag U Histoplasma Ag Index ng/mL Urine Legionella Ag (Negative) Negative Ur Strep pneumoniae Ag (Negative) Negative B-(1,3)-D-Glucan Quant (<60 pg/mL) pg/mL B-(1,3)-D-Glucan Qual (Negative) Range/Units 10/17/22 10/17/22 10/17/22 05:58 05:58 05:58 WBC (4.4-10.8) 10^3/uL RBC (4.36-5.78) 10^6/uL Hgb (13.5-17.5) g/dL Hct (40.0-50.0) % MCV (80-95) fL MCH (27.0-33.0) pg MCHC (32.0-36.0) % RDW (11.8-14.1) % Plt Count (130-400) 10^3/uL MPV (8.0-11.0) fL Immature Gran % Neutrophils % Lymphocytes % Monocytes % Eosinophils % Basophils % Nucleated RBC % (0.0-0.3) % Absolute Neutrophils (1.2-6.7) 10^3/uL Absolute Lymphocytes (1.2-3.4) 10^3/uL Absolute Monocytes (0.1-0.8) 10^3/uL Absolute Eosinophils (0.0-0.7) 10^3/uL Absolute Basophils (0.0-0.2) 10^3/uL RBC Morphology PT (9.3-11.0) sec INR (0.9-1.1) D-Dimer (<500) ng/mlFEU Sodium (136-145) mmol/L 136 Potassium (3.5-5.1) mmol/L 3.6 Chloride (98-107) mmol/L 102 Carbon Dioxide (21.0-32.0) mmol/L 24.8 Anion Gap (3-11) mmol/L 9.2 BUN (7-18) mg/dL 25 H Creatinine (0.70-1.30) mg/dL 1.3 Est GFR (CKD-EPI 2020) (mL/min/1.73m2) 59.10 Glucose (74-106) mg/dL 153 H Calcium (8.5-10.1) mg/dL 8.6 Magnesium (1.8-2.4) mg/dL 1.9 Ferritin (26-388) ng/mL 275 Total Bilirubin (0.2-1.0) mg/dL 1.1 H Conjugated Bilirubin (0.0-0.2) mg/dL 0.3 H AST (15-37) U/L 29 ALT (16-63) U/L 21 Alkaline Phosphatase (46-116) U/L 72 C-Reactive Protein (0.0-0.3) mg/dL 13.42 H Total Protein (6.4-8.2) g/dL 7.5 Albumin (3.4-5.0) g/dL 3.1 L 25-OH Vitamin D Total (30-100) ng/mL 54.4 Procalcitonin ng/mL < 0.1 TSH (0.36-3.74) uIU/mL 0.53 Blastomyces Ag Result Blastomyces Ag Comment ng/mL COVID-19 Source SARS-CoV-2 (PCR) (Negative) Urine Histoplasma Ag U Histoplasma Ag Index ng/mL Urine Legionella Ag (Negative) Ur Strep pneumoniae Ag (Negative) B-(1,3)-D-Glucan Quant (<60 pg/mL) pg/mL B-(1,3)-D-Glucan Qual (Negative) Range/Units 10/17/22 10/17/22 10/17/22 05:58 05:58 05:58 WBC (4.4-10.8) 10^3/uL 13.17 H RBC (4.36-5.78) 10^6/uL 4.28 L Hgb (13.5-17.5) g/dL 13.5 Hct (40.0-50.0) % 40.4 MCV (80-95) fL 94 MCH (27.0-33.0) pg 31.5 MCHC (32.0-36.0) % 33.4 RDW (11.8-14.1) % 12.9 Plt Count (130-400) 10^3/uL 146 MPV (8.0-11.0) fL 10.3 Immature Gran % 0.5 Neutrophils % 88.3 Lymphocytes % 3.4 Monocytes % 7.6 Eosinophils % 0.0 Basophils % 0.2 Nucleated RBC % (0.0-0.3) % 0.0 Absolute Neutrophils (1.2-6.7) 10^3/uL 11.63 H Absolute Lymphocytes (1.2-3.4) 10^3/uL 0.45 L Absolute Monocytes (0.1-0.8) 10^3/uL 1.00 H Absolute Eosinophils (0.0-0.7) 10^3/uL 0.00 Absolute Basophils (0.0-0.2) 10^3/uL 0.03 RBC Morphology PT (9.3-11.0) sec 10.9 INR (0.9-1.1) 1.1 D-Dimer (<500) ng/mlFEU 1170 H Sodium (136-145) mmol/L Potassium (3.5-5.1) mmol/L Chloride (98-107) mmol/L Carbon Dioxide (21.0-32.0) mmol/L Anion Gap (3-11) mmol/L BUN (7-18) mg/dL Creatinine (0.70-1.30) mg/dL Est GFR (CKD-EPI 2020) (mL/min/1.73m2) Glucose (74-106) mg/dL Calcium (8.5-10.1) mg/dL Magnesium (1.8-2.4) mg/dL Ferritin (26-388) ng/mL Total Bilirubin (0.2-1.0) mg/dL Conjugated Bilirubin (0.0-0.2) mg/dL AST (15-37) U/L ALT (16-63) U/L Alkaline Phosphatase (46-116) U/L C-Reactive Protein (0.0-0.3) mg/dL Total Protein (6.4-8.2) g/dL Albumin (3.4-5.0) g/dL 25-OH Vitamin D Total (30-100) ng/mL Procalcitonin ng/mL TSH (0.36-3.74) uIU/mL Blastomyces Ag Result Blastomyces Ag Comment ng/mL COVID-19 Source SARS-CoV-2 (PCR) (Negative) Urine Histoplasma Ag U Histoplasma Ag Index ng/mL Urine Legionella Ag (Negative) Ur Strep pneumoniae Ag (Negative) B-(1,3)-D-Glucan Quant (<60 pg/mL) pg/mL <31 B-(1,3)-D-Glucan Qual (Negative) Negative Range/Units 10/17/22 10/17/22 10/18/22 23:00 23:00 05:40 WBC (4.4-10.8) 10^3/uL RBC (4.36-5.78) 10^6/uL Hgb (13.5-17.5) g/dL Hct (40.0-50.0) % MCV (80-95) fL MCH (27.0-33.0) pg MCHC (32.0-36.0) % RDW (11.8-14.1) % Plt Count (130-400) 10^3/uL MPV (8.0-11.0) fL Immature Gran % Neutrophils % Lymphocytes % Monocytes % Eosinophils % Basophils % Nucleated RBC % (0.0-0.3) % Absolute Neutrophils (1.2-6.7) 10^3/uL Absolute Lymphocytes (1.2-3.4) 10^3/uL Absolute Monocytes (0.1-0.8) 10^3/uL Absolute Eosinophils (0.0-0.7) 10^3/uL Absolute Basophils (0.0-0.2) 10^3/uL RBC Morphology PT (9.3-11.0) sec INR (0.9-1.1) D-Dimer (<500) ng/mlFEU Sodium (136-145) mmol/L 137 Potassium (3.5-5.1) mmol/L 4.1 Chloride (98-107) mmol/L 101 Carbon Dioxide (21.0-32.0) mmol/L 24.8 Anion Gap (3-11) mmol/L 11.2 H BUN (7-18) mg/dL 41 H Creatinine (0.70-1.30) mg/dL 1.4 H Est GFR (CKD-EPI 2020) (mL/min/1.73m2) 54.07 Glucose (74-106) mg/dL 154 H Calcium (8.5-10.1) mg/dL 9.0 Magnesium (1.8-2.4) mg/dL 2.1 Ferritin (26-388) ng/mL Total Bilirubin (0.2-1.0) mg/dL Conjugated Bilirubin (0.0-0.2) mg/dL AST (15-37) U/L ALT (16-63) U/L Alkaline Phosphatase (46-116) U/L C-Reactive Protein (0.0-0.3) mg/dL 6.79 H Total Protein (6.4-8.2) g/dL Albumin (3.4-5.0) g/dL 25-OH Vitamin D Total (30-100) ng/mL Procalcitonin ng/mL TSH (0.36-3.74) uIU/mL Blastomyces Ag Result Not Detected Blastomyces Ag Comment ng/mL Not Detected COVID-19 Source SARS-CoV-2 (PCR) (Negative) Urine Histoplasma Ag Not Detected U Histoplasma Ag Index ng/mL Not Detected Urine Legionella Ag (Negative) Ur Strep pneumoniae Ag (Negative) B-(1,3)-D-Glucan Quant (<60 pg/mL) pg/mL B-(1,3)-D-Glucan Qual (Negative) Range/Units 10/18/22 10/19/22 10/19/22 05:40 06:10 06:10 WBC (4.4-10.8) 10^3/uL 14.61 H 16.40 H RBC (4.36-5.78) 10^6/uL 4.50 4.90 Hgb (13.5-17.5) g/dL 14.4 15.8 Hct (40.0-50.0) % 42.4 46.7 MCV (80-95) fL 94 95 MCH (27.0-33.0) pg 32.0 32.2 MCHC (32.0-36.0) % 34.0 33.8 RDW (11.8-14.1) % 12.6 12.9 Plt Count (130-400) 10^3/uL 164 234 MPV (8.0-11.0) fL 10.5 10.1 Immature Gran % 0.5 0.5 Neutrophils % 88.5 85.7 Lymphocytes % 3.6 5.8 Monocytes % 7.3 7.8 Eosinophils % 0.0 0.1 Basophils % 0.1 0.1 Nucleated RBC % (0.0-0.3) % 0.0 0.0 Absolute Neutrophils (1.2-6.7) 10^3/uL 12.93 H 14.05 H Absolute Lymphocytes (1.2-3.4) 10^3/uL 0.53 L 0.95 L Absolute Monocytes (0.1-0.8) 10^3/uL 1.07 H 1.28 H Absolute Eosinophils (0.0-0.7) 10^3/uL 0.00 0.02 Absolute Basophils (0.0-0.2) 10^3/uL 0.01 0.02 RBC Morphology PT (9.3-11.0) sec INR (0.9-1.1) D-Dimer (<500) ng/mlFEU Sodium (136-145) mmol/L 135 L Potassium (3.5-5.1) mmol/L 4.7 Chloride (98-107) mmol/L 97 L Carbon Dioxide (21.0-32.0) mmol/L 28.5 Anion Gap (3-11) mmol/L 9.5 BUN (7-18) mg/dL 49 H Creatinine (0.70-1.30) mg/dL 1.4 H Est GFR (CKD-EPI 2020) (mL/min/1.73m2) 54.07 Glucose (74-106) mg/dL 135 H Calcium (8.5-10.1) mg/dL 9.5 Magnesium (1.8-2.4) mg/dL 2.2 Ferritin (26-388) ng/mL Total Bilirubin (0.2-1.0) mg/dL Conjugated Bilirubin (0.0-0.2) mg/dL AST (15-37) U/L ALT (16-63) U/L Alkaline Phosphatase (46-116) U/L C-Reactive Protein (0.0-0.3) mg/dL 3.37 H Total Protein (6.4-8.2) g/dL Albumin (3.4-5.0) g/dL 25-OH Vitamin D Total (30-100) ng/mL Procalcitonin ng/mL TSH (0.36-3.74) uIU/mL Blastomyces Ag Result Blastomyces Ag Comment ng/mL COVID-19 Source SARS-CoV-2 (PCR) (Negative) Urine Histoplasma Ag U Histoplasma Ag Index ng/mL Urine Legionella Ag (Negative) Ur Strep pneumoniae Ag (Negative) B-(1,3)-D-Glucan Quant (<60 pg/mL) pg/mL B-(1,3)-D-Glucan Qual (Negative) Range/Units 10/20/22 10/20/22 06:50 06:50 WBC (4.4-10.8) 10^3/uL 15.14 H RBC (4.36-5.78) 10^6/uL 5.17 Hgb (13.5-17.5) g/dL 16.3 Hct (40.0-50.0) % 48.6 MCV (80-95) fL 94 MCH (27.0-33.0) pg 31.5 MCHC (32.0-36.0) % 33.5 RDW (11.8-14.1) % 12.8 Plt Count (130-400) 10^3/uL 215 MPV (8.0-11.0) fL 9.8 Immature Gran % See Differential Neutrophils % 71.0 Lymphocytes % 20.0 Monocytes % 9.0 Eosinophils % 0.0 Basophils % 0.0 Nucleated RBC % (0.0-0.3) % 0.0 Absolute Neutrophils (1.2-6.7) 10^3/uL 10.75 H Absolute Lymphocytes (1.2-3.4) 10^3/uL 3.03 Absolute Monocytes (0.1-0.8) 10^3/uL 1.36 H Absolute Eosinophils (0.0-0.7) 10^3/uL 0.00 Absolute Basophils (0.0-0.2) 10^3/uL 0.00 RBC Morphology Normal PT (9.3-11.0) sec INR (0.9-1.1) D-Dimer (<500) ng/mlFEU Sodium (136-145) mmol/L 135 L Potassium (3.5-5.1) mmol/L 4.2 Chloride (98-107) mmol/L 99 Carbon Dioxide (21.0-32.0) mmol/L 26.4 Anion Gap (3-11) mmol/L 9.6 BUN (7-18) mg/dL 53 H Creatinine (0.70-1.30) mg/dL 1.6 H Est GFR (CKD-EPI 2020) (mL/min/1.73m2) 46.06 Glucose (74-106) mg/dL 98 Calcium (8.5-10.1) mg/dL 9.2 Magnesium (1.8-2.4) mg/dL 2.3 Ferritin (26-388) ng/mL Total Bilirubin (0.2-1.0) mg/dL Conjugated Bilirubin (0.0-0.2) mg/dL AST (15-37) U/L ALT (16-63) U/L Alkaline Phosphatase (46-116) U/L C-Reactive Protein (0.0-0.3) mg/dL 1.79 H Total Protein (6.4-8.2) g/dL Albumin (3.4-5.0) g/dL 25-OH Vitamin D Total (30-100) ng/mL Procalcitonin ng/mL TSH (0.36-3.74) uIU/mL Blastomyces Ag Result Blastomyces Ag Comment ng/mL COVID-19 Source SARS-CoV-2 (PCR) (Negative) Urine Histoplasma Ag U Histoplasma Ag Index ng/mL Urine Legionella Ag (Negative) Ur Strep pneumoniae Ag (Negative) B-(1,3)-D-Glucan Quant (<60 pg/mL) pg/mL B-(1,3)-D-Glucan Qual (Negative)
--- NOTE | 2022-10-21 07:34 | NUR.NOTE ---
Nursing Note: This nurse reviewed patient's oxygenation from the telemetry monitoring overnight. The lowest recorded oxygen saturation overnight was 88%. Otherwise most all SA02 are above 90%.
[2022-10-21] MEDS: Gabapentin 100 MG CAP PO ×2 (07:51→14:15)
[2022-10-21] MEDS: Sulfameth/Trimeth DS TAB 1 TAB PO (07:51)
[2022-10-21] MEDS: Azithromycin 250 MG TAB PO (07:51)
[2022-10-21] MEDS: Apixaban 5 MG TAB PO (07:51)
[2022-10-21] MEDS: Pantoprazole 40 MG TABCR PO (07:51)
[2022-10-21] MEDS: Sertraline 50 MG TAB 100 MG PO (07:52)
[2022-10-21] MEDS: Benzonatate 100 MG CAP 200 MG PO ×2 (07:52→14:15)
[2022-10-21] MEDS: predniSONE 20 MG TAB 40 MG PO (07:52)
[2022-10-21] MEDS: Furosemide 20 MG TAB PO ×2 (07:52→15:57)
[2022-10-21] MEDS: Metoprolol CR 50 MG TABCR PO (07:52)
--- NOTE | 2022-10-21 11:41 | PT.INTREAT ---
Date of service: 10/21/22 Time of Service: 09:30 PT Notes Visit Reasons: Acute on Chronic Hypoxic Respiratory Failure,ILD F Inpatient Physical Therapy Treatment Note [facility] Date: 10/21/22 PRECAUTIONS: Standard, activity as tolerated, closely monitor SaO2. SUBJECTIVE: Patient reports feeling better, sitting in chair, agreeable to therapy. AFTERNOON: same. OBJECTIVE: PAIN: none reported AFTERNOON: reports mild muscle soreness in bilateral hips from am walk. BED MOBILITY/TRANSFERS Rolling L/R: independent Supine-sit: independent Sit-supine: independent Sit-stand: independent Stand-sit: independent Bed-Chair: independent Chair-bed: independent GAIT Assistive Device: no device Weight bearing: full Assist: SBA, help managing O2 tank and monitoring SaO2 device. Distance: between 1000 and 1500 feet, over uneven surfaces, pavement, soft grass. AFTERNOON: 600 feet, indoor, level ground. Deviation: No notable deviation, although patients step length does innately shorten on soft grass, likely to help with balance. no LOB noted. VITALS: Ambulation on 3L supplemental O2 patient maintains sats between 88 and 92, dropping only briefly to 87. Seated rest, SaO2 drops to 84. Patient tending to mouth-breathe when seated. Increased supplemental O2 to 4L/min, verbal cue for patient to breathe nasally, SaO2 recovered to 96 in <1 minute. AFTERNOON: vitals monitored via telemetry by nursing staff. Patient reports no shortness of breath. THEREX: supervised ambulation with cues for patient to increase / decrease walking speed, stop to rest, pursed lip breathe as needed. THERACT: AFTERNOON: Patient ambulation, review of home layout, education re: O2 management. ASSESSMENT: Patient tolerates therapy well. Does report in the afternoon some soreness from the morning. PLAN: Continue global strengthening per plan of care until patient is medically ready for discharge. TREATMENT CODE/TIME: [id number] Ther Ex 26 minutes beginning at 9:30, [id number] Ther Act 14 minutes beginning at 12:50
[2022-10-21] MEDS: Albuterol/Ipratropium 3 ML UPD VIAL UPD (12:04)
--- NOTE | 2022-10-21 13:06 | W.NOCTURNAL ---
Date of service: 10/19/22 Time of Service: 22:04 Nocturnal Oximetry Note: Overnight Oximetry Amount of time analyzed: 8 hours, 32 minutes, CPAP with 3LPM O2 bleed Number of minutes under 88%: 15.3 min LYNN:4.4 Appearance of oxygen saturation pattern:gradual and sharp decreases that may indicate MAR mixed with either pulmonary or cardiac disease. Recommendation: Continue with supplemental O2 overnight. Consider an increase in CPAP pressure. Echo Tavares MD Pulmonary & Critical Care Medicine
--- NOTE | 2022-10-21 13:09 | W.NOCTURNAL ---
Date of service: 10/20/22 Time of Service: 22:04 Nocturnal Oximetry Note: Overnight Oximetry Amount of time analyzed: 9 hours, 54 minutes on CPAP with 0-2LPM bleed in oxygen Number of minutes under 88%: 137 min LYNN: 5.5 Appearance of oxygen saturation pattern:gradual decreases with some sharp SpO2 decreases suggesting cardiopulmonary disease and MAR. Recommendation: recommend trial with 2-3LPM O2 overnight bleed in or consider increasing CPAP pressure. Echo Tavares MD Pulmonary & Critical Care Medicine
[2022-10-21 15:18] LABS: Mycoplasma Pneumoniae PCR Negative; Specimen source sputum
--- NOTE | 2022-10-21 15:52 | CMDISCH_ITS ---
Date of service: 10/21/22 Time of Service: 15:52 LACE Index Scoring Tool Questions: Length of Stay (in days): 4 - 6 Was the patient admitted via the E.D.?: No Comorbidities: Congestive Heart Failure, Chronic Pulmonary Disease and Liver or Renal Disease E.D. Visits: 0 Answers: Total Score: 9 Risk of Readmission: Low Risk Care Management Discharge Plan Reason for Hospitalization: interstitial lung disease Discharge Plan: Prasad returned home today with no new services. His O2 prescription was updated through [facility], coordinated by RT. The Pulmonology office is working on changing his O2 equipment through [employer] to [facility] more portable. His will drive him home via private vehicle. He will follow up with Pulmonology, his PCP, and his discharge plan of care. He is happy to be going home. Patient/Family Education Needs: Review discharge instructions and limitations, discussion of self care needs including ask me three. Services Needed at Discharge: Oxygen Therapy ([place])
--- NOTE | 2022-10-21 15:57 | DSE_ITS ---
Date of service: 10/21/22 Time of Service: 15:57 DS: Diagnosis Discharge Diagnosis (1) Acute congestive heart failure: Status: Acute Asessment and Plan: with preserved ejection fraction (2) Acute and chronic respiratory failure: Status: Acute (3) Interstitial lung disease: Status: Acute (4) Sleep apnea, obstructive: Status: Chronic (5) Excessive sputum: Status: Acute (6) Pulmonary hypertension: Status: Acute (7) Hypomagnesemia: Status: Acute (8) Acute kidney injury superimposed on chronic kidney disease: Status: Acute (9) Syncope: Status: Acute Asessment and Plan: a week prior to admission, in setting of hypoxia. (10) Atrial fibrillation: Discharge Plan Disposition Patient Disposition: Home Condition: Improving Discharge Details Reason For Visit: Acute on Chronic Hypoxic Respiratory Failure,ILD F Admit Date/Time: 10/16/22 17:23 Admit Provider: Jacqueline Mckeon Attending Provider: Jacqueline Mckeon Primary Care Provider: Francisco Javier Morris [facility] Hospital Course: Mr Mandujano is a 72 year old male with h/o ILD, chronic hypoxic respiratory failure on 2L of O2 prior to admission, hypertension, CKD, who was admitted to [facility] ICU on 10/16/22 with acute on chronic hypoxic respiratory failure requiring 9 L of O2 by CT. A recent chest CT had showed worsening appearance of ILD with ground glass opacities. CT was not repeated on his presentation to [facility] ER, from where he was transferred to [facility] ICU. The differential diagnosis for the patient was an ILD flare, an infectious process (bacterial vs fungal), or fluid overload. He was treated for all three with steroids, empiric antibiotics, and diuresis. With this therapy he had a markedly rapid improvement, more consistent with a fluid overload/CHF than with an infectious etiology. His echocardiogram showed LVEF of 55-60%, normal wall motion, a normally functioning RV, mildly dilated bilateral atria, moderate mitral and tricuspid regurgitation, and RVSP of 46 mmHg. ILD flare in addition to this is still possible. He was seen by Dr Tavares who felt that bronchoscopy would not be needed in this case so rapidly responding to therapy. His Urine histoplasma, blastomyces antigens, and Fungitell were all negative, as were urine legionella, strep antigens and mycoplasma sputum PCR. The patient was started on bactrim prophylaxis as he is expected to be on a lengthy steroid taper. Today, the patient is requiring 1 L of O2 at rest, 2L with CPAP (determined by overnight oximetry), and 3L when ambulating. The patient is on furosemide 20 mg PO daily on discharge. He might benefit from a repeat echocardiogram as an outpatient in a couple of weeks to ensure that his RVSP has improved. Otherwise, he might be a candidate for therapy. Dr Tavares would like to restart the patient on ofev. As far as a syncopal event a week prior to presentation, by description it sounds like it was provoked by hypoxia and tachycardia. He is medically stable for discharge and agreeable to discharge with above oxygen prescription. He will need to have bloodwork in 1 week - results to his PCP. Care for patient as well as completion of his discharge summary on day of discharge took 60 minutes. Case was discussed with Dr Tavares. Home Meds and New Rx's Prescriptions: New furosemide 20 mg Tablet 20 mg PO DAILY Qty: 10 0RF albuterol sulfate 2.5 mg /3 mL (0.083 %) solution for nebulization 2.5 mg inhalation Q4H PRN (Reason: shortness of breath or wheezing) Qty: 180 0RF ipratropium-albuterol 0.5 mg-3 mg(2.5 mg base)/3 mL solution for nebulization 3 ml inhalation Q6H Qty: 180 0RF Continued albuterol sulfate [Ventolin HFA] 90 mcg/actuation HFA aerosol inhaler 2 puff inhalation Q6H PRN (Reason: shortness of breath or wheezing) Qty: 8.5 12RF atorvastatin 40 mg tablet 40 mg PO DAILY bioflavonoids 200 mg capsule See Rx Instructions PO DIRECTED Rx Instructions: orally as directed; Eliquis 5 mg tablet 5 mg PO BID gabapentin 100 mg capsule 100 mg PO TID metoprolol succinate 100 mg tablet extended release 24 hr 100 mg PO DAILY Rx Instructions: Take 1/2 tablet in the am, 1 tablet at HS multivitamin Tablet 1 tab PO DAILY sertraline 100 mg tablet 100 mg PO BID prednisone 10 mg tablet 10 mg PO DIRECTED Qty: 137 0RF Rx Instructions: Take 4 tabs for 2 weeks, 3 tabs for 2 weeks, 2 tabs for 2 weeks, 1 tab for 1 week, 0.5 tabs for 1 week sulfamethoxazole-trimethoprim [Bactrim DS] 800-160 mg tablet 1 tab PO DAILY Qty: 42 0RF Rx Instructions: Take one tab daily while on 20mg prednisone or higher pantoprazole 40 mg tablet,delayed release (DR/EC) 40 mg PO DAILY Qty: 30 0RF Ofev 100 mg capsule 100 mg PO Q12H Qty: 60 10RF Discharge Instructions Instructions: Furosemide (By mouth), Prednisone (By mouth), Antitussive/Expectorant (By mouth), Heart Failure (GEN), Heart Healthy Diet (DC), Using Oxygen at Home (DC) Additional Instructions: Use 1 L of oxygen at rest, 2L with CPAP, and 3L with ambulation. Return to the hospital with any fever, bleeding, chest pain, or worsening shortness of breath. Monitor your oxygen saturations at home and contact your PCP/Dr Tavares or return to the hospital if your oxygen saturations are below 88% consistently despite being on above oxygen. Finish your prednisone taper as prescribed. Follow up with your PCP in 1-2 weeks. Follow up with Dr Tavares. Follow up with Cardiology (Dr Shepherd). [facility] in 1 week. Stand Alone Forms: Nursing Discharge Form Referrals: Maurice Shepherd MD [ NON-[facility] STAFF PHYSICIAN] - 11/18/22 4:00 pm Francisco Javier Morris [Primary Care Provider] - (call [phone] to make an appointment within 2 weeks) Etta Vega PA [PHYSICIANS SUPERVISOR ORDER TAKERS] - 11/17/22 1:00 pm Activity:: Activity as Tolerated Equipment/Supplies:: Oxygen as above; nebulize Diet:: heart healthy Discharge Orders Discharge Orders: Discharge Order (Routine); Ordered 10/21/22 Ordered By: Jacqueline Mckeon Other Ambulatory Orders: Basic Metabolic Panel (Routine) Timeframe: 20221028 Location: Determined by Patient Ordered By: Jacqueline Mckeon Magnesium (Routine) Timeframe: 20221028 Location: Determined by Patient Ordered By: Jacqueline Mckeon Discharge Data Discharge Date/Time-TO BE ENTERED AT DEPARTURE: 10/21/22 16:47 Discharge Comment: dc home DS: Summary Time Spent with Patient providing and/or coordinating discharge services: Greater than 30 minutes Status at Discharge Functional status at discharge: independent ambulation Overall status at discharge: patient is progressing back to baseline Mental Status: mental status grossly normal Speech and Movement: speech and movement normal Mood: congruent mood Affect: normal affect Exam Psych Mental Status: mental status grossly normal Speech and Movement: speech and movement normal Mood: congruent mood Affect: normal affect DS: Data Vitals/I&O Vitals and I&O: Vital Signs Temperature 36.4 C L 10/21/22 11:33 Temperature Source Tympanic 10/21/22 11:33 Pulse 78 10/21/22 12:21 Pulse Rhythm Regular 10/21/22 07:55 Pulse 83 10/20/22 22:15 Respiratory Rate 18 10/21/22 12:21 Respiratory Effort Normal, Short of Breath 10/21/22 07:55 Respiratory Depth Shallow 10/21/22 07:55 Respiratory Pattern Normal 10/21/22 07:55 Blood Pressure 93/64 L 10/21/22 11:33 Blood Pressure Mean 87 10/19/22 18:37 Blood Pressure Position Sitting 10/19/22 07:12 Pulse Oximetry 93 10/21/22 12:21 Oxygen Delivery Method Nasal Cannula 10/21/22 12:04 Oxygen Flow Rate 2 10/21/22 12:04 Fraction of Inspired Oxygen (FIO2) 30 10/18/22 08:03 Pain Level 0 10/21/22 11:33 Comment Neb tx given 10/21/22 04:17 Intake & Output 10/20/22 10/21/22 10/21/22 23:59 11:59 23:59 Intake Total 300 / 310 Output Total 900 / 1750 1550 / 1550 Balance -600 / -1440 -1550 / -1550 Intake: Oral 300 / 300 Output: Urine 900 / 1750 1550 / 1550 Other: Urine Color Yellow Yellow Urine Appearance Clear Clear Urine Odor Normal None Voiding Methods Urinal Urinal Data Completed and Pending Completed studies during hospitalization [Text1]: CXR 10/18/22: Extensive bilateral interstitial disease, as evident on the recent outside CT scan of 10/12/2022. Echo 10/18/22: Normal left ventricular wall thickness and chamber size.? Ejection fraction is 55 to 60%.? Wall motion is normal Normal right ventricular size and systolic function Both atria are mildly dilated [place] aortic valve without stenosis or regurgitation Normal mitral valve with moderate regurgitation Normal tricuspid valve with moderate regurgitation.? Estimated right ventricular systolic pressure is 46 mmHg Mildly dilated ascending aorta 0.7 cm CXR 10/21/22: Severe pulmonary fibrosis.? No change from recent prior exam.? Labs on day of discharge: Preliminary micro results at discharge 10/17/22 21:06 Sputum Culture - Preliminary Sputum Normal Kimberly Demetria Albicans PFSH All Active Problems (Updated 10/21/22 @ 17:21 by Jacqueline Mckeon MD) Other specified diseases of upper respiratory tract (Acute) Pulmonary hypertension (Acute) Excessive sputum (Acute) Bronchospasm (Acute) Hypomagnesemia (Acute) Acute kidney injury superimposed on chronic kidney disease (Acute) Leukocytosis (Acute) Syncope (Acute) Acute congestive heart failure (Acute) Discharge planning issues (Acute) Acute and chronic respiratory failure (Acute) Backache (Acute) Carpal tunnel syndrome of right wrist (Acute) Cervical radiculopathy (Acute) Chronic kidney disease (CKD) (Chronic) Depressive disorder (Chronic) Eustachian tube disorder (Acute) Fibrosis, lung (Acute) Hyperlipidemia (Acute) Hypertensive disorder (Chronic) Interstitial lung disease (Acute) Sleep apnea, obstructive (Chronic) Periodic limb movement disorder (Acute) Right sided sciatica (Acute) Syringomyelia (Acute) Personal history of nicotine dependence (Acute) Medical History (Updated 10/21/22 @ 17:21 by Jacqueline Mckeon MD) Atrial fibrillation F/U with cards last appt 10/01/22. Scheduled for stress test and ECHO in 11/02/2022 Malignant neoplasm of prostate Surgical History (Updated 01/13/22 @ 14:04 by Suze Guerrero) H/O hemorrhoidectomy H/O hernia repair History of carpal tunnel surgery History of colonoscopy History of lung biopsy History of radical prostatectomy Hx of tonsillectomy Family History (Updated 01/13/22 @ 14:06 by Suze Guerrero) Brother Heart disease Father Heart disease Mother Pancreatic cancer Social History Smoking/Tobacco Use Status: Former Tobacco Use Quit Date: 03/21/12 Smoking risk assessment performed?: Yes Alcohol Intake: current Alcohol Intake frequency: holidays/special occasions only Drug use: Never Substance use type: does not use Housing: house Additional Social history: unable to assess [facility] Time Spent with Patient Time Spent with Patient: 45-69 minutes Time was spent: preparing to see the patient(eg.review tests), obtaining and/or reviewing separately otained hiistory, ordering medications,tests, procedures, referring, communicating with other health career technical counselor, indepentently interpreting results, counseling the patient and care coordination
== END 2022-10-21 16:47 | disposition home or self-care (01) | DRG 196 ==
LOC: ICU 10-19 13:38 → MS 10-19 21:28
PROVIDERS: Admitting Provider Internal Medicine; PCP Internal Medicine; Visit Provider Internal Medicine
DX: J84.10 Pulmonary fibrosis, unspecified (principal); J96.21 Acute and chronic respiratory failure with hypoxia; I13.0 Hypertensive heart and chronic kidney disease with heart failure and stage 1 through stage 4 chronic kidney disease, or unspecified chronic kidney disease; N17.9 Acute kidney failure, unspecified; G95.0 Syringomyelia and syringobulbia; I50.9 Heart failure, unspecified; N18.9 Chronic kidney disease, unspecified; I48.91 Unspecified atrial fibrillation; G47.33 Obstructive sleep apnea (adult) (pediatric); E78.5 Hyperlipidemia, unspecified; R55 Syncope and collapse; D72.829 Elevated white blood cell count, unspecified; E83.42 Hypomagnesemia; I27.20 Pulmonary hypertension, unspecified; F32.A Depression, unspecified; M54.12 Radiculopathy, cervical region; G47.61 Periodic limb movement disorder; Z85.46 Personal history of malignant neoplasm of prostate; Z87.891 Personal history of nicotine dependence; M54.31 Sciatica, right side
CPT/HCPCS: 36415; 80048; 80076; 82306; 84145; 87449; 87635; 93270; 93306; 93308; 94618; 97110; 97112; 97116; 97140; 97162; 97530; 71045; 71046; 82728; 83735; 84443; 85025; 85379; 85610; 86140; 87070; 87205; 87385; 87581; 87899; 94640; 94660; 94667; 94668; 94760; 94762; 99223; 99232; 99233; 99239; J0456; J1940; J1941; J7512; J7613; J7620